=== PATIENT | female | born 1990 | race Caucasian/White ===

== ENCOUNTER 2018-01-27 20:58 | Observation (INO) | payer BC ==
--- OUTSIDE RECORDS SUMMARY | 2018-01-27 21:09 | XMS REPORT | Clinical Summary ---
:1990 Author Organization [facility] Address [address] [place] [address] Care Team Providers Name Role Phone Leon Coburn MD Primary Care Provider Allergies Active Allergy Reactions Severity Noted Date Comments Meperidine 08/17/2013 Current Medications Prescription Sig. Disp. Refills Start Date End Date Status topiramate (TOPAMAX) 25 MG TK 1 T PO HS 3 10/09/2017 Active tablet NORETHINDRONE AC-ETH Take by mouth. Active ESTRADIOL (LOESTRIN 1.5/30, 21, ORAL) lisdexamfetamine (VYVANSE) Take 70 mg by Active 70 MG capsule mouth every morning. escitalopram (LEXAPRO) 20 MG Take 20 mg by Active tablet mouth daily. meloxicam (MOBIC) 15 mg Take 15 mg by Active tablet mouth daily. amitriptyline (ELAVIL) 25 MG Take 25 mg by Active tablet mouth nightly. predniSONE (DELTASONE) 5 mg Take 5 mg by Active tablet mouth 3 (three) times a day. Active Problems Not on file Encounters Date Type Specialty Care Team Description 10/16/2017 Office Visit Ophthalmology Shaunna, Optic disc edema ( Primary Dx); MD Franchesca Unspecified visual field defects; Eye pain, bilateral; Dry eyes; Frequent headaches after 01/26/2017 Family History Medical History Relation Name Comments Hypertension Father Lupus Mother Glaucoma Paternal Grandfather Stroke Paternal Grandmother Lupus Sister Relation Name Status Comments Father Mother Paternal Grandfather Paternal Grandmother Sister Social History Tobacco Use Types Packs/Day Years Used Date Never Smoker Smokeless Tobacco: Never Used Alcohol Use Drinks/Week oz/Week Comments Yes "rarely" Sex Assigned at Date Recorded Not on file Last Filed Vital Signs Vital Sign Reading Time Taken Blood Pressure - - Pulse - - Temperature - - Respiratory Rate - - Oxygen Saturation - - Inhaled Oxygen Concentration - - Weight 56.7 kg (125 lb) 10/16/2017 7:38 AM CDT Height 157.5 cm (5' 2") 10/16/2017 7:38 AM CDT Body Mass Index 22.86 10/16/2017 7:38 AM CDT Plan of Treatment Health Maintenance Due Date Last Done Comments CERVICAL CANCER SCREENING 2009 INFLUENZA VACCINE 02/11/2018 Procedures Procedure Name Priority Date/Time Associated Diagnosis Comments OCT, OPTIC NERVE - Routine 10/16/2017 7:59 AM Unspecified visual Results for this OU - BOTH EYES CDT field defects procedure are in Optic disc edema the results section. AUTOMATED VISUAL Routine 10/16/2017 7:59 AM Unspecified visual Results for this FIELD, EXTENDED - CDT field defects procedure are in OU - BOTH EYES Optic disc edema the results section. after 01/26/2017 Results OCT, Optic Nerve - OU (10/16/2017 7:59 AM) Narrative Performed At OD 96 OS 96 Automated Visual Field, Extended - OU (10/16/2017 7:59 AM) Narrative Performed At Right Eye Threshold was 24-2. Strategy was NANCY. -4.80. Findings include normal observations, non-specific defects. Left Eye Threshold was 24-2. Strategy was NANCY. -3.98. Findings include normal observations, non-specific defects. after 01/26/2017 Insurance Payer Benefit Plan / Group Subscriber ID Type Phone Address BCBS BCBS CHOICE PPO/FEDERAL EMPL PPO xxxxxxxxxxxx PPO Home: [address] [phone] [address]
[2018-01-28] MEDS ORDERED: ENOXAPARIN 60 MG/0.6 ML SQ SCH (09:00)
[2018-01-28] MEDS ORDERED: ACETAMINOPHEN 325 MG TABLET PO PRN (09:31)
--- NOTE | 2018-01-28 10:22 | RAD REPORT ---
EXAM DESCRIPTION: VAS - Extrem Venous W Compress Ilya - 01/28/2018 10:02 am CLINICAL HISTORY: Leg pain, history of DVT COMPARISON: None. TECHNIQUE: Real-time sonographic evaluation of the bilateral lower extremity deep venous systems was performed. FINDINGS: Normal compressibility, flow augmentation, phasic flow and spontaneous flow are identified in the left and right lower extremity common femoral, superficial femoral, popliteal and posterior t ibial veins. No intraluminal filling defects seen. No suspicious finding in the soft tissues. IMPRESSION: No DVT in either lower extremity.
--- NOTE | 2018-01-28 14:40 | ECHO ---
HEIGHT: 5 ft 2 in WEIGHT: 128 lb 0 oz DATE OF STUDY: 01/28/[address]: Leon Coburn MD 2-DIMENSIONAL: YES M.MODE: YES DOPPLER: YES COLOR FLOW: YES TDS: NO PORTABLE: NO DEFINITY: NO BUBBLE STUDY: NO DIAGNOSIS: PULMONARY EMBOLISM CARDIAC HISTORY: CATHERIZATION: NO SURGERY: NO PROSTHETIC VALVE: NO PACEMAKER: NO MEASUREMENTS (cm) DIASTOLIC (NORMALS) SYSTOLIC (NORMALS) IVSd 0.8 (0.6-1.2) LA Diam 2.8 (1.9-4.0) LVEF 67% LVIDd 4.6 (3.5-5.7) LVIDs 2.9 (2.0-3.5) %FS 37% LVPWd 0.8 (0.6-1.2) Ao Diam 2.6 (2.0-3.7) 2 DIMENSIONAL ASSESSMENT: RIGHT ATRIUM: NORMAL LEFT ATRIUM: NORMAL RIGHT VENTRICLE: NORMAL LEFT VENTRICLE: NORMAL TRICUSPID VALVE: NORMAL MITRAL VALVE: NORMAL PULMONIC VALVE: NORMAL AORTIC VALVE: NORMAL PERICARDIAL EFFUSION: NONE AORTIC ROOT: NORMAL LEFT VENTRICULAR WALL MOTION: NORMAL. DOPPLER/COLOR FLOW: PHYSIOLOGIC TRICUSPID REGURGITATION. NORMAL RIGHT VENTRICULAR SYSTOLIC PRESSURE. COMMENTS: NORMAL 2D ECHO WITH DOPPLER. TECHNOLOGIST: MELANY MCKNIGHT
[2018-01-30 11:17] LABS: Protein C Antigen 91 % (70-140)
[2018-02-02 15:35] LABS: Prothrombin Gene Analysis Test REPORT
== END 2018-01-28 15:36 | disposition home or self-care (01) ==
LOC: 4TH 21:08 → INTOOBSV 21:08
PROVIDERS: ADMIT Internal Medicine; ATTEND Internal Medicine
DX: I26.99 Other pulmonary embolism without acute cor pulmonale (principal); M32.9 Systemic lupus erythematosus, unspecified; I07.1 Rheumatic tricuspid insufficiency; G43.909 Migraine, unspecified, not intractable, without status migrainosus; Z88.5 Allergy status to narcotic agent
CPT/HCPCS: 81240; 81241; 83090; 85300; 85302; 85305; 85306; 86147; 93306; 93970; G0378; J1650

== ENCOUNTER 2018-03-05 11:57 | Observation (INO) | payer BC ==
--- OUTSIDE RECORDS SUMMARY | 2018-03-05 12:12 | XMS REPORT | Continuity of Care Document ---
:1990 Author Organization Interface Problems Problem Status Onset Classification Date Comments Source Date Reported AMENORRHEA, Active Condition 03/28/2014 Medical SECONDARY, 4 Group R/O MRSA Active Condition 03/28/2014 Medical 4 Group Medications Medication Details Route Status Patient Ordering Order Source Instructions Provider Date LEXAPRO 20 MG 2 tabs po Active 03/28/20 Medical TABS qd 14 Group ADDERALL XR 30 1 Ttab po Active 03/28/20 Medical MG [id number] qam 14 Group ABILIFY 5 MG 1 tab po Active 03/28/20 Medical TABS qd 14 Group Allergies, Adverse Reactions, Alerts Substance Category Reaction Severity Reaction Status Date Comments Source type Reported DEMEROL Drug DEMEROL allergy 4 Medical Group Immunizations Immunization Date Given Site Status Last Updated Comments Source Results Order Results Value Reference Date Interpretation Comments Source Name Range Rhia PAP SMEAR Normal Medical 014 Group Vital Signs Vital Sign Value Date Comments Source Weight 128 03/28/2014 Medical Group Height 63 03/28/2014 Medical Group Systolic (mm Hg) 98 03/28/2014 Medical Group Heart Rate 103 03/28/2014 Medical Group Diastolic (mm Hg) 63 03/28/2014 Medical Group Temperature Oral (F) 99.0 F 03/28/2014 Medical Group Encounters Location Location Encounter Encounter Reason Attending ADM DC Status Source Details Type Number For Provider Date Date Visit [facility] Lab Report [id number] Cm 03/28 03/28 Jah Douglass, /2013 [facility] Medical MERCURY PURIFIER Group Group CCC [facility] Procedures Procedure Code Date Perfomer Comments Source vaginal Pap smear [id number] 01/11/2014 Normal Medical results Group
--- OUTSIDE RECORDS SUMMARY | 2018-03-05 12:12 | XMS REPORT | Continuity of Care Document ---
:1990 Author Organization [facility] Care Team Providers Name Role Phone CIERRA Douglass, Cm Unavailable Unavailable Insurance Providers Payer name Policy type / Policy ID Covered republican ID Policy Candelaria Coverage type [employer] - AETNA SIGNAT AETNA [employer] - AETNA SIGNAT AETNA AETNA AETNA AETNA Encounters Encounter Performer Location Date Lab Report Cm Douglass APRN [facility] Mar 28, 2014 Allergies, Adverse Reactions, Alerts Type Substance Reaction Status Drug allergy DEMEROL crazy-per patient Active Problems Problem Effective Dates Problem Status AMENORRHEA, SECONDARY, R/O Mar 28, 2014 Active MRSA Mar 28, 2014 Active Procedures Date Description Comments Mar 28, 2014 smoking status Former smoker Jan 11, 2014 vaginal Pap smear results Normal Medications Medication Instructions Start Date Status LEXAPRO 20 MG TABS 2 tabs po qd Mar 28, 2014 Active ADDERALL XR 30 MG [id number] 1 Ttab po qam Mar 28, 2014 Active ABILIFY 5 MG TABS 1 tab po qd Mar 28, 2014 Active Vital Signs Date Description Test Result Mar 28, 2014 weight E&M - 3141-9 WEIGHT 128 lb Mar 28, 2014 height E&M - 8302-2 HEIGHT 63 in Mar 28, 2014 blood pressure, systolic - 8480-6 BP SYSTOLIC 98 mm Hg Mar 28, 2014 pulse rate E&M - 8867-4 PULSE RATE 103 /min Mar 28, 2014 blood pressure, diastolic - 8462-4 BP DIASTOLIC 63 mm Hg Mar 28, 2014 temperature E&M TEMPERATURE 99.0 deg f Results Date Description Test Name Value Reference Interpretation Status Jan 11, 2014 vaginal Pap smear PAP SMEAR Normal null results
--- OUTSIDE RECORDS SUMMARY | 2018-03-05 12:12 | XMS REPORT | Clinical Summary ---
:1990 Author Organization [facility] Address [address] [place] [address] Care Team Providers Name Role Phone Leon Coburn MD Primary Care Provider Allergies Active Allergy Reactions Severity Noted Date Comments Meperidine 08/17/2013 Current Medications Prescription Sig. Disp. Refills Start Date End Date Status topiramate (TOPAMAX) 25 TK 1 T PO HS 3 10/09/2017 Active MG tablet NORETHINDRONE AC-ETH Take by mouth. Active ESTRADIOL (LOESTRIN 1.5/30, 21, ORAL) lisdexamfetamine Take 70 mg by Active (VYVANSE) 70 MG capsule mouth every morning. escitalopram (LEXAPRO) Take 20 mg by Active 20 MG tablet mouth daily. meloxicam (MOBIC) 15 mg Take 15 mg by Active tablet mouth daily. amitriptyline (ELAVIL) Take 25 mg by Active 25 MG tablet mouth nightly. predniSONE (DELTASONE) Take 5 mg by Active 5 mg tablet mouth 3 (three) times a day. lidocaine (LIDODERM) 5 Place 1 patch 10 patch 0 01/29/2018 02/28/2018 % on the skin daily for 30 days. Remove & Discard patch within 12 hours or as directed by MD Active Problems Not on file Encounters Date Type Specialty Care Team Description 01/29/2018 Emergency Emergency Medicine Andrew Sewell MD PE (pulmonary thromboembolism) (Primary Dx); Rib pain on left side 01/29/2018 Telephone Cardiovascular Emma Garg RN 10/16/2017 Office Visit Ophthalmology Shaunna, Optic disc edema ( Primary Dx); MD Franchesca Unspecified visual field defects; Eye pain, bilateral; Dry eyes; Frequent headaches after 03/04/2017 Family History Medical History Relation Name Comments [...] Vital Sign Reading Time Taken Blood Pressure 98/62 01/29/2018 8:43 PM CDT Pulse 86 01/29/2018 8:43 PM CDT Temperature 36.6 C (97.8 F) 01/29/2018 7:29 PM CDT Respiratory Rate 16 01/29/2018 8:43 PM CDT Oxygen Saturation 100% 01/29/2018 8:43 PM CDT Inhaled Oxygen Concentration - - Weight 56.7 kg (125 lb) 10/16/2017 7:38 AM CDT Height 157.5 cm (5' 2") 01/29/2018 7:29 PM CDT Body Mass Index 22.86 10/16/2017 7:38 AM CDT Plan of Treatment Health Maintenance Due Date Last Done Comments CERVICAL CANCER SCREENING 2009 INFLUENZA VACCINE 02/11/2018 04/10/2016 Procedures Procedure Name Priority Date/Time Associated Comments Diagnosis ESTIMATED GFR STAT 01/29/2018 7:35 Results for this PM CDT procedure are in the results section. B NATRIURETIC PEPTIDE STAT 01/29/2018 7:35 Results for this PM CDT procedure are in the results section. TROPONIN STAT 01/29/2018 7:35 Results for this PM CDT procedure are in the results section. COMPREHENSIVE STAT 01/29/2018 7:35 Results for this METABOLIC PANEL PM CDT procedure are in the results section. HC COMPLETE BLD COUNT STAT 01/29/2018 7:35 Results for this W/AUTO DIFF PM CDT procedure are in the results section. ECG 12-LEAD STAT 01/29/2018 7:34 Results for this PM CDT procedure are in the results section. OCT, OPTIC NERVE - OU Routine 10/16/2017 7:59 Unspecified visual Results for this - BOTH EYES AM CDT field defects procedure are in Optic disc edema the results section. AUTOMATED VISUAL Routine 10/16/2017 7:59 Unspecified visual Results for this FIELD, EXTENDED - OU - AM CDT field defects procedure are in BOTH EYES Optic disc edema the results section. after 03/04/2017 Results Estimated GFR (01/29/2018 7:35 PM) GFR Non Af Amer 85 mL/min/1.73 m2 [facility] DEPARTMENT OF PATHOLOGY AND GENOMIC MEDICINE GFR Af Amer >90 mL/min/1.73 m2 [facility] DEPARTMENT OF Comment: PATHOLOGY AND GENOMIC Chronic kidney disease: <60 mL/min/1.73m2 MEDICINE Kidney failure: <15 mL/min/1.73m2 The estimated GFR is calculated from the IDMS-traceable Modification of Diet in Renal Disease Equation. The accuracy of the calculation is poor when the creatinine is normal. Calculated values >90 mL/min/1.73m2 are not reported. This equation has not been validated in children (<18 years), women, the elderly (>70 years), or ethnic groups other than Caucasians and Americans. Specimen Plasma specimen Performing Organization Address City/State/[facility] Cent[facility]ode Phone Number [facility] DEPARTMENT OF PATHOLOGY AND [address] [place] [address] Troponin (01/29/2018 7:35 PM) Troponin <0.30 0.00 - 0.30 ng/mL [facility] DEPARTMENT OF PATHOLOGY Comment: AND GENOMIC MEDICINE 0.30 - 1.49 ng/mlMay indicate increased risk of acute coronary syndrome. >=1.5 ng/mlConsistent with acute myocardial infarction. The diagnostic value of a single normal or non-diagnostic result is questionable.Serial samples at 2-6 hour intervals are required to rule out acute myocardial injury. Specimen Plasma specimen Performing Organization Address City/State/[facility] Centercode Phone Number [facility] DEPARTMENT OF PATHOLOGY AND [address] [place], [place] [phone] [facility] CBC with platelet and differential (01/29/2018 7:35 PM) WBC 5.77 4.50 - 11.00 k/uL [facility] DEPARTMENT OF PATHOLOGY AND GENOMIC MEDICINE RBC 4.10 (L) 4.20 - 5.50 m/uL [facility] DEPARTMENT OF PATHOLOGY AND GENOMIC MEDICINE HGB 12.6 12.0 - 16.0 g/dL [facility] DEPARTMENT OF PATHOLOGY AND GENOMIC MEDICINE HCT 38.9 37.0 - 47.0 % [facility] DEPARTMENT OF PATHOLOGY AND GENOMIC MEDICINE MCV 94.9 82.0 - 100.0 fL [facility] DEPARTMENT OF PATHOLOGY AND GENOMIC MEDICINE MCH 30.7 27.0 - 34.0 pg [facility] DEPARTMENT OF PATHOLOGY AND GENOMIC MEDICINE MCHC 32.4 31.0 - 37.0 g/dL [facility] DEPARTMENT OF PATHOLOGY AND GENOMIC MEDICINE RDW - SD 41.5 37.0 - 55.0 fL [facility] DEPARTMENT OF PATHOLOGY AND GENOMIC MEDICINE MPV 10.1 8.8 - 13.2 fL [facility] DEPARTMENT OF PATHOLOGY AND GENOMIC MEDICINE Platelet count 296 150 - 400 k/uL [facility] DEPARTMENT OF PATHOLOGY AND GENOMIC MEDICINE Nucleated RBC 0.00 /100 WBC [facility] DEPARTMENT OF PATHOLOGY AND GENOMIC MEDICINE Neutrophils 44.0 39.0 - 69.0 % [facility] DEPARTMENT OF PATHOLOGY AND GENOMIC MEDICINE Lymphocytes 41.8 25.0 - 45.0 % [facility] DEPARTMENT OF PATHOLOGY AND GENOMIC MEDICINE Monocytes 8.0 0.0 - 10.0 % [facility] DEPARTMENT OF PATHOLOGY AND GENOMIC MEDICINE Eosinophils 4.5 0.0 - 5.0 % [facility] DEPARTMENT OF PATHOLOGY AND GENOMIC MEDICINE Basophils 1.4 (H) 0.0 - 1.0 % [facility] DEPARTMENT OF PATHOLOGY AND GENOMIC MEDICINE Immature granulocytes 0.3Comment: 0.0 - 1.0 % [facility] DEPARTMENT OF "Immature PATHOLOGY AND GENOMIC granulocytes" MEDICINE (promyelocytes, myelocytes, metamyelocytes) Specimen Blood Performing Organization Address City/[facility]/Zipcode Phone Number [facility] DEPARTMENT OF PATHOLOGY AND [address] [place] [address] B natriuretic peptide (01/29/2018 7:35 PM) BNP 7 0 - 100 pg/mL [facility] DEPARTMENT OF PATHOLOGY AND GENOMIC MEDICINE Specimen Blood Performing Organization Address City/[facility]/Zipcode Phone Number [facility] DEPARTMENT OF PATHOLOGY AND [address] [place], [place] [phone] [facility] Comprehensive metabolic panel (01/29/2018 7:35 PM) Sodium 139 135 - 148 mEq/L [facility] DEPARTMENT OF PATHOLOGY AND GENOMIC MEDICINE Potassium 4.6 3.5 - 5.0 mEq/L [facility] DEPARTMENT OF PATHOLOGY AND GENOMIC MEDICINE Chloride 101 98 - 112 mEq/L [facility] DEPARTMENT OF PATHOLOGY AND GENOMIC MEDICINE CO2 29 24 - 31 mEq/L [facility] DEPARTMENT OF PATHOLOGY AND GENOMIC MEDICINE Anion gap 9@ANIO 7 - 15 mEq/L [facility] DEPARTMENT OF PATHOLOGY AND GENOMIC MEDICINE BUN 15 6 - 20 mg/dL [facility] DEPARTMENT OF PATHOLOGY AND GENOMIC MEDICINE Creatinine 0.8 0.5 - 0.9 mg/dL [facility] DEPARTMENT OF PATHOLOGY AND GENOMIC MEDICINE Glucose 83 65 - 99 mg/dL [facility] DEPARTMENT OF PATHOLOGY AND GENOMIC MEDICINE Calcium 9.2 8.3 - 10.2 mg/dL [facility] DEPARTMENT OF PATHOLOGY AND GENOMIC MEDICINE Protein 6.9 6.3 - 8.3 g/dL [facility] DEPARTMENT OF Comment: PATHOLOGY AND GENOMIC 4.6-7.0 g/dL MEDICINE 1 week 4.4-7.6 g/dL 7 months-1year5.1-7.3 g/dL 1-2 years5.6-7.5 g/dL >3 years6.0-8.0 g/dL 18-150 6.3-8.3 g/dL Albumin 3.6 3.5 - 5.0 g/dL [facility] DEPARTMENT OF PATHOLOGY AND GENOMIC MEDICINE A/G ratio 1.1 0.7 - 3.8 [facility] DEPARTMENT OF PATHOLOGY AND GENOMIC MEDICINE Alkaline phosphatase 56 35 - 104 U/L [facility] DEPARTMENT OF PATHOLOGY AND GENOMIC MEDICINE AST 26 10 - 35 U/L [facility] DEPARTMENT OF PATHOLOGY AND GENOMIC MEDICINE ALT 24 5 - 50 U/L [facility] DEPARTMENT OF PATHOLOGY AND GENOMIC MEDICINE Total bilirubin <0.2 0.0 - 1.2 mg/dL [facility] DEPARTMENT OF PATHOLOGY AND GENOMIC MEDICINE Specimen Plasma specimen Performing Organization Address City/[facility] Centercode Phone Number [facility] DEPARTMENT OF PATHOLOGY AND [address] [place] [address] [facility] ECG 12 lead (01/29/2018 7:34 PM) Ventricular rate 82 HM MUSE Atrial rate 82 HM MUSE AR interval 104 [facility] MUSE QRSD interval 84 HM MUSE QT interval 388 [facility] MUSE QTC interval 453 [facility] MUSE P axis 1 61 [facility] MUSE QRS axis 1 51 [facility] MUSE T wave axis 44 [facility] MUSE EKG impression Sinus rhythm with short AR-Otherwise normal [facility] MUSE ECG-No previous ECGs available- Performing Organization Address City/[facility] Centercoin Phone Number [facility] [address] [place] [address] OCT, Optic Nerve - OU (10/16/2017 7:59 AM) Narrative Performed At OD 96 OS 96 Automated Visual Field, Extended - OU (10/16/2017 7:59 AM) Narrative Performed At Right Eye Threshold was 24-2. Strategy was NANCY. -4.80. Findings include normal observations, non-specific defects. Left Eye Threshold was 24-2. Strategy was NANCY. -3.98. Findings include normal observations, non-specific defects. after 03/04/2017 Insurance Payer Benefit Plan / Group Subscriber ID Type Phone Address BS BS CHOICE PPO/FEDERAL EMPL PPO xxxxxxxxxxxx PPO Home: [address] [phone] [address]
[2018-03-05] MEDS ORDERED: LOPERAMIDE HCL 2 MG CAPSULE PO PRN (13:00)
[2018-03-05] MEDS ORDERED: DIPHENHYDRAMINE 25 MG TAB/CAP PO PRN (13:00)
[2018-03-05] MEDS ORDERED: NACHLORIDE 0.45% 1,000 ML IV SCH (13:00)
[2018-03-05] MEDS ORDERED: ACETAMINOPHEN 325 MG TABLET PO PRN (13:00)
[2018-03-05] MEDS ORDERED: ONDANSETRON 4 MG (ODT) TAB PO PRN (13:00)
[2018-03-05] MEDS ORDERED: POLYETHYL GLY 3350 17 GM/DOSE PO PRN (13:00)
[2018-03-05] MEDS ORDERED: ONDANSETRON 4 MG/2 ML VIAL IV PRN (13:00)
[2018-03-05 13:21] LABS: Absolute Lymphocytes (CBC) 1.5 K/uL (0.7-4.9); Absolute Monocytes 0.3 K/uL (0.1-1.3); Absolute Neutrophil 2.4 K/uL (1.8-8.0); Basophils % 1.4 % (0-1.3); Eosinophils % 1.4 % (0-4.4); Lymphocytes % 34.3 % (15.3-44.8); MCH 30.8 pg (27.0-35.0); MCV 91.1 fL (80-100); Monocytes % 6.9 % (3.3-12.3); RBC Red Blood Cell Count 4.17 M/uL (3.86-4.86)
[2018-03-05 13:24] LABS: Protime INR 1.22
--- NOTE | 2018-03-05 13:51 | RAD REPORT ---
EXAM DESCRIPTION: RAD - Chest Pa And Lat (2 Views) - 03/05/2018 1:24 pm CLINICAL HISTORY: Back pain, abdominal pain, lupus COMPARISON: October 2017 TECHNIQUE: PA and lateral views of the chest were obtained. FINDINGS: The lungs are clear. No mediastinal or hilar mass or lymphadenopathy suspected. Trachea i s midline. Heart size is normal and central vasculature is within normal limits. No pleural effusion or pneumothorax seen. No acute bony finding noted. No aortic abnormality. IMPRESSION: No acute cardiopulmonary process. No significant change from comparison.
[2018-03-05 14:01] LABS: ALT/SGPT 28 U/L (12-78); AST/SGOT 23 U/L (15-37); Albumin 4.1 g/dL (3.4-5.0); Alkaline Phosphatase 59 U/L (45-117); BUN Blood Urea Nitrogen 8 mg/dL (7-18); Bicarbonate 28 mmol/L (21-32); Bilirubin Direct < 0.1 mg/dL (0-0.2); Bilirubin Total 0.2 mg/dL (0.2-1.0); C-Reactive Protein < 2.90 mg/L (<3.00); Glucose Level 84 mg/dL (74-106); Phosphorus 3.3 mg/dL (2.5-4.9); Potassium 4.3 mmol/L (3.5-5.1); Protein, Total 7.5 g/dL (6.4-8.2); Sodium Level 140 mmol/L (136-145)
[2018-03-05] MEDS: METHYLPREDNISOLONE 40 MG INJ IV SCH ×2 (14:22→18:22)
[2018-03-05] MEDS ORDERED: PNEUMOCOCCAL VACCINE 0.5 ML IMVAC ONE (15:00)
[2018-03-05 15:20] LABS: Urine Appearance CLEAR; Urine Bilirubin NEGATIVE (NEG); Urine Blood NEGATIVE (NEG); Urine Color YELLOW; Urine Glucose NEGATIVE (NEG); Urine Microscopic Reflex NO UMIC; Urine Protein NEGATIVE (NEG); Urine Specific Gravity 1.015 (1.005-1.030); Urine Urobilinogen 0.2 mg/dL (0.2-1.0); Urine pH 7.5 (5.0-7.0)
--- NOTE | 2018-03-05 16:27 | EKG ---
Test Date: 2018-03-05 Test Time: 13:06:49 [employer]ary V[employer]er Machine Operator: JDUY MEASUREMENT RESULTS: Intervals: Rate: 87 MI: 136 QRSD: 86 QT: 374 QTc: 450 [place]: P: 78 MI: 136 QRS: 47 T: 49 INTERPRETIVE STATEMENTS: Normal sinus rhythm Normal ECG No previous ECG available for comparison Electronically Signed On 03-05-18 16:27:05 CDT by Sd Glaser
--- NOTE | 2018-03-05 16:57 | RAD REPORT ---
EXAM DESCRIPTION: US - Abdomen Exam Complete - 03/05/2018 4:43 pm CLINICAL HISTORY: Abdominal pain. abd pain active lupus backpain COMPARISON: No comparisonsNo comparisons FINDINGS: The liver is normal in size, shape and echotexture. No focal liver lesions or intrahepatic biliary dilatation is seen. The gallbladder demonstrates no gallstones, pericholecystic fluid or gallbladder wall thickening. Co mmon bile duct is normal in caliber measuring 3 mm. Both kidneys are normal in size, shape and echotexture. No hydronephrosis, focal lesion of concern or perinephric fluid. The spleen is normal in size measuring 10 cm. The pancreas and aorta are obscured by bowel gas. The visualized aspects of the IVC are grossly normal. IMPRESSION: Unremarkable study except for limited assessment of the pancreas and aorta due to bowel gas.
[2018-03-05] MEDS ORDERED: RIVAROXABAN 20 MG TABLET PO SCH (17:00)
--- NOTE | 2018-03-05 17:57 | RAD REPORT ---
EXAM DESCRIPTION: MRI - Spine Lumbar W/Wo Cont - 03/05/2018 4:12 pm CLINICAL HISTORY: Worsening back pain COMPARISON: None. TECHNIQUE: Sagittal T1-weighted, T2-weighted and T2-STIR weighted sequences were obtained. Axial T1- weighted and heavily T2-weighted sequences were obtained through the lumbar disc levels. Sagittal and axial post-contrast. T1-weighted images were obtained following 40ml on Gd contrast material. FINDINGS: Lumbar bodies are normal in height and alignment. No suspicious marrow signal. No paraspin al masses. Conus is normal with no clumping or thickening of the cauda equina. T12-L1 level: No significant findings. L1-2 level: No significant findings. L2-3 level: No significant findings. L3-4 level: No significant findings. L4-5 level: No significant findings. L5-S1 level: No significant findings. Postcontrast images show enhancement of the soft tissues surrounding the L5-S1 facet joints. Enhancem ent within the remaining lumbar facet joints not outside of normal range. No disc or vertebral body e nhancement. No abnormal enhancement in the central canal. IMPRESSION: Enhancement surrounding the bilateral L5-S1 facet joints. Finding can reflect a chronic low-level inflammatory process or early facet arthritis. The remainder of the lumbar spine examination is unremarkable.
--- NOTE | 2018-03-05 18:03 | RAD REPORT ---
EXAM DESCRIPTION: MRI - MRA Abdomen W/Wo Cont - 03/05/2018 4:12 pm CLINICAL HISTORY: Abdominal pain, lupus, mesenteric ischemia COMPARISON: None. TECHNIQUE: Axial T2 haste sequencing performed. MR angiography of the abdominal vasculature performe d. Coronal plane acquisition performed. A 40 milliliter MultiHance contrast volume was utilized. Imag ing was performed using maximum intensity projection protocol. FINDINGS: Aorta is normal in diameter. No dissection or focal aortic process. Iliac arteries normal as well. Single renal artery supply each kidney with no focal abnormality seen. Origins of the celiac and superior mesenteric arteries also unremarkable. Far peripheral branches are not well visualized due to motion. Bowel ischemic issues are usually associated with proximal disease. No fibromuscular d ysplasia or other vascular abnormality identifiable. IMPRESSION: Negative MR angiography of the abdominal vasculature.
[2018-03-05] MEDS ORDERED: SODIUM CHLORIDE 0.9% 10ML INJ IV PRN (18:18)
[2018-03-05] MEDS: TRAMADOL HCL 50 MG TAB PO PRN (18:53)
[2018-03-05] MEDS: PANTOPRAZOLE 40 MG INJ IVP SCH (18:55)
[2018-03-05] MEDS ORDERED: FLUDROCORTISONE 0.1 MG TAB PO PRN (21:48)
[2018-03-06] MEDS: METHYLPREDNISOLONE 40 MG INJ IV SCH ×3 (00:31→12:36)
[2018-03-06 05:48] LABS: Absolute Lymphocytes (CBC) 0.6 K/uL (0.7-4.9); Absolute Monocytes 0.1 K/uL (0.1-1.3); Basophils % 0.1 % (0-1.3); Hematocrit 36.7 % (36.0-45.0); Lymphocytes % 9.5 % (15.3-44.8); MCH 31.4 pg (27.0-35.0); MCV 91.1 fL (80-100); MPV 7.9 fL (7.6-11.3); Monocytes % 1.1 % (3.3-12.3); RBC Red Blood Cell Count 4.03 M/uL (3.86-4.86)
[2018-03-06 06:02] LABS: BUN Blood Urea Nitrogen 10 mg/dL (7-18); Bicarbonate 26 mmol/L (21-32); Glucose Level 118 mg/dL (74-106); Magnesium 1.9 mg/dL (1.8-2.4); Potassium 3.9 mmol/L (3.5-5.1); Sodium Level 138 mmol/L (136-145)
[2018-03-06] MEDS: TRAMADOL HCL 50 MG TAB PO PRN (06:07)
[2018-03-06 06:41] LABS: Blood Morphology Comment NOT SEEN (NOT SEEN); Platelet Estimate ADEQ; Urine White Blood Cell Casts OK
[2018-03-06] MEDS: MAGNESIUM SULFATE 1 gm IVPB 1 GM/100 ML BAG IV ONE ×2 (09:00→10:46)
[2018-03-06] MEDS ORDERED: POTASSIUM CL SA 10 MEQ TAB PO ONE (09:00)
[2018-03-06] MEDS ORDERED: LISDEXAMFETAMINE DIMESYLATE PO SCH (09:00)
[2018-03-06] MEDS ORDERED: HYDROXYCHLOROQUINE 200MG TAB PO SCH (09:00)
[2018-03-06] MEDS ORDERED: ESCITALOPRAM 20 MG TAB PO SCH (09:00)
[2018-03-06] MEDS ORDERED: RIVAROXABAN 10 MG TABLET PO SCH (09:00)
[2018-03-06] MEDS ORDERED: ENOXAPARIN 40 MG/0.4 ML SQ SCH (09:00)
[2018-03-06] MEDS ORDERED: TOPIRAMATE 25 MG TAB PO SCH ×2 (09:00→21:00)
[2018-03-06] MEDS: PANTOPRAZOLE 40 MG INJ IVP SCH (09:58)
--- NOTE | 2018-03-06 10:24 | RAD REPORT ---
EXAM DESCRIPTION: CTAbdomen Pelvis W Contrast - 03/06/2018 10:12 am CLINICAL HISTORY: Abdominal pain. abdomen pain COMPARISON: No comparisons TECHNIQUE: Biphasic CT imaging of the abdomen and pelvis was performed with 100 ml non-ionic IV cont rast. All CT scans are performed using dose optimization technique as appropriate and may include automated exposure control or mA/KV adjustment according to patient size. FINDINGS: The lung bases are clear. Mild diffuse fatty liver is present. 6 mm low-density lesion in the right lobe posteriorly most likel y a cyst. No intrahepatic biliary dilatation is seen. The spleen, pancreas, adrenal glands right kidn ey are normal. The left kidney contains a 5 mm stone in the midpole and a punctate stone in the super ior pole without hydronephrosis. 9 mm cyst is present inferior pole left kidney. No bowel obstruction, free air, free fluid or abscess. The appendix is normal. No evidence of signi ficant lymphadenopathy. No suspicious bony findings. IMPRESSION: Left renal calculi without hydronephrosis.
--- NOTE | 2018-03-06 12:41 | P.DS ---
Admission Date: 03/05/18 Discharge Date: 03/06/18 Disposition: ROUTINE DISCHARGE Discharge Condition: [facility] Hospital Course: KAL HAS HAD SEVERE LOWER BACK PAIN WITH RADIATION TO FRONT. MRI SHOWED L5-S1 INFLAMMATION. SHE HAS ANTI HISTONE POSITIVE. HER CT ABD SHOWED RENAL STONES , OLD. MRA NEGATIVE . SHE IS STABLE FOR DC . I CALLED DR. FIERRO TO GET HER IN FOR APT HER OTHER RHEUMATOLOGISTS ARE NOT ABLE TO CONTROL HER SYMPTOMS. HE AGREED. DC PAIN MEDS TRAMADOL. Vital Signs/Physical Exam: Temp Pulse Resp BP Pulse Ox 97.3 F 92 H 18 101/61 100 03/06/18 12:00 03/06/18 12:00 03/06/18 12:00 03/06/18 12:00 03/06/18 12:00 Laboratory Data at Discharge: WBC 6.7 K/uL (4.3-10.9) D 03/06/18 05:19 Hgb 12.7 g/dL (12.0-15.0) 03/06/18 05:19 Hct 36.7 % (36.0-45.0) 03/06/18 05:19 Plt Count 348 K/uL (152-406) 03/06/18 05:19 PT 14.4 SECONDS (9.5-12.5) H 03/05/18 13:05 INR 1.22 03/05/18 13:05 APTT 39.4 SECONDS (24.3-36.9) H 03/05/18 13:05 Sodium 138 mmol/L (136-145) 03/06/18 05:19 Potassium 3.9 mmol/L (3.5-5.1) 03/06/18 05:19 BUN 10 mg/dL (7-18) 03/06/18 05:19 Creatinine 0.60 mg/dL (0.55-1.3) 03/06/18 05:19 Glucose 118 mg/dL (74-106) H 03/06/18 05:19 Phosphorus 3.3 mg/dL (2.5-4.9) 03/05/18 13:05 Magnesium 1.9 mg/dL (1.8-2.4) 03/06/18 05:19 Total Bilirubin 0.2 mg/dL (0.2-1.0) 03/05/18 13:05 AST 23 U/L (15-37) 03/05/18 13:05 ALT 28 U/L (12-78) 03/05/18 13:05 Alkaline Phosphatase 59 U/L (45-117) 03/05/18 13:05 Home Medications: Lisdexamfetamine Dimesylate [Vyvanse] 1 cap PO DAILY 01/27/18 Topiramate [Topamax] 1 tab PO DAILY 01/27/18 Fludrocortisone Acetate 0.1 mg PO PRN PRN 01/28/18 Escitalopram [Lexapro*] 30 mg PO DAILY 03/05/18 Hydroxychloroquine [Plaquenil*] 200 mg PO DAILY 03/05/18 Rivaroxaban [Xarelto*] 20 mg PO DAILY 03/05/18 Patient Discharge Instructions: I TALKED TO DR FIERRO. HIS OFFICE WILL CONTACT YOU. I NEED YOU TO BRING YOUR CT SCAN THAT SHOWED BLOOD CLOT IN LUNG. I HAVE FAXED ALL PAPERS TO DR. FIERRO.
[2018-03-07 12:44] LABS: Complement (CH50), Total 43 U/mL (31-60)
== END 2018-03-06 13:20 | disposition home or self-care (01) ==
LOC: 4TH 12:09
PROVIDERS: ADMIT Internal Medicine; ATTEND Internal Medicine
DX: M54.5 Low back pain (principal); R51 Headache; M32.9 Systemic lupus erythematosus, unspecified
CPT/HCPCS: 36415; 71046; 72158; 74177; 76700; 80048; 80076; 81003; 82306; 82607; 83735; 84100; 84443; 85025; 85610; 85652; 85730; 86140; 86160; 86162; 87086; 87088; 93005; A9577; C8902; C9113; G0378; J2920; J3475; Q9967

== ENCOUNTER 2018-05-01 11:44 | Observation (INO) | payer BC ==
--- OUTSIDE RECORDS SUMMARY | 2018-05-01 12:05 | XMS REPORT | Continuity of Care Document ---
:1990 Author Organization [facility] Care Team Providers Name Role Phone CIERRA Douglass, Cm Unavailable Unavailable Insurance Providers Payer name Policy type / Policy ID Covered alliance party ID Policy Candelaria Coverage type [employer] - AETNA SIGNAT AETNA [employer] - AETNA SIGNAT AETNA AETNA AETNA AETNA Encounters Encounter Performer Location Date Lab Report Cm Douglass APRN [facility] Mar 28, 2014 Allergies, Adverse Reactions, Alerts [...] 28, 2014 Active ADDERALL XR 30 MG [id number] 1 Ttab po qam Mar 28, 2014 [...]
--- OUTSIDE RECORDS SUMMARY | 2018-05-01 12:05 | XMS REPORT | Continuity of Care Document ---
[...] 1 Ttab po Active 03/28/20 Medical MG [id number] qam 14 Group ABILIFY 5 MG 1 tab po Active 03/28/20 Medical TABS qd 14 Group Allergies, Adverse Reactions, Alerts Substance Category Reaction Severity Reaction Status Date Comments Source type Reported DEMEROL Drug DEMEROL allergy 4 Medical Group Immunizations Immunization Date Given Site Status Last Updated Comments Source Results Order Results Value Reference Date Interpretation Comments Source Name Range Grommet Worker PAP SMEAR Normal Medical 014 Group Vital [...] Type Number For Provider Date Date Visit [facility] Lab Report [id number] Cm 03/28 03/28 Jah Douglass, /2013 Medical Medical CAR [facility] Procedures Procedure Code Date Perfomer Comments Source vaginal Pap smear [id number] 01/11/2014 Normal Medical results Group
--- OUTSIDE RECORDS SUMMARY | 2018-05-01 12:05 | XMS REPORT | Clinical Summary ---
:1990 Author Organization [facility] Address [address] [place] [id number] Care Team Providers Name Role Phone Leon Coburn MD Primary Care Provider Allergies Active Allergy Reactions Severity Noted Date Comments Meperidine 08/17/2013 Current Medications Prescription Sig. Disp. Refills Start End Date Status Date topiramate (TOPAMAX) 25 TK 1 T PO HS 3 Active MG tablet 8 lisdexamfetamine Take 70 mg by Active (VYVANSE) 70 MG capsule mouth every morning. escitalopram (LEXAPRO) Take 20 mg by Active 20 MG tablet mouth daily. hydroxychloroquine 1 pill a day Active (PLAQUENIL) 200 mg 8 tablet rivaroxaban (XARELTO) Active 20 mg tablet 8 RESTASIS MULTIDOSE 0.05 Active % drops 8 traMADol (ULTRAM) 50 mg Active tablet 8 SUMAtriptan (IMITREX) TK 1 T PO AOS 5 Active 25 MG tablet OF MCCORMACK. NOVEMBER 18 REPEAT ONE IN 2 H IF NO MCCORMACK RELIEF. MAX OF 4 TABLETS IN 24 H fludrocortisone TK 1 T PO D FOR 1 Active (FLORINEF) 0.1 mg ORTHOSTASIS 8 tablet b complex vitamins Take 1 capsule Active capsule by mouth daily. L. rhamnosus GG/inulin Take by mouth. Active (CULTURELLE PROBIOTICS ORAL) UNABLE TO FIND Zquil for sleep Active NORETHINDRONE AC-ETH Take by mouth. 03/10/20 Discontinued ESTRADIOL (LOESTRIN 18 1.5/30, 21, ORAL) meloxicam (MOBIC) 15 mg Take 15 mg by 08/28/20 Discontinued tablet mouth daily. 18 amitriptyline (ELAVIL) Take 25 mg by 03/10/20 Discontinued 25 MG tablet mouth nightly. 18 predniSONE (DELTASONE) Take 5 mg by 03/10/20 Discontinued 5 mg tablet mouth 3 (three) 18 times a day. lidocaine (LIDODERM) 5 Place 1 patch 10 patch 0 02/29/20 % on the skin 8 18 daily for 30 days. Remove & Discard patch within 12 hours or as directed by MD Active Problems Not on file Encounters Date Type Specialty Care Team Description 03/10/2018 Office Visit Rheumatology Yunier Luo Positive VINCE ( antinuclear antibody) (Primary Dx); MD Sophia Other acute pulmonary embolism without acute cor pulmonale; Dry mouth; Cervical lymphadenopathy 01/29/2018 Emergency Emergency Medicine Andrew Sewell MD PE (pulmonary thromboembolism) (Primary Dx); Rib pain on left side 01/29/2018 Telephone Cardiovascular Emma Garg RN 10/16/2017 Office Visit Ophthalmology Shaunna, Optic disc edema ( Primary Dx); MD Franchesca Unspecified visual field defects; Eye pain, bilateral; Dry eyes; Frequent headaches after 04/30/2017 Family History Medical History Relation Name Comments No Known Problems Brother Hypertension Father Other Mother positive VINCE Glaucoma Paternal Grandfather Stroke Paternal Grandmother Lupus Sister Scleroderma Sister No Known Problems Sister No Known Problems Sister Relation Name Status Comments Brother Alive Father Alive Mother Alive Paternal Grandfather Paternal Grandmother Sister Alive Sister Alive Sister Alive Social History Tobacco Use Types Packs/Day Years Used Date Never Smoker Smokeless Tobacco: Never Used Alcohol Use Drinks/Week oz/Week Comments Yes "rarely" Sex Assigned at Date Recorded Not on file Last Filed Vital Signs Vital Sign Reading Time Taken Blood Pressure 128/86 03/10/2018 8:40 AM CDT Pulse 116 03/10/2018 8:40 AM CDT Temperature 36.8 C (98.2 F) 03/10/2018 8:40 AM CDT Respiratory Rate 18 03/10/2018 8:40 AM CDT Oxygen Saturation 100% 03/10/2018 8:40 AM CDT Inhaled Oxygen Concentration - - Weight 58.3 kg (128 lb 9.6 oz) 03/10/2018 8:40 AM CDT Height 157.5 cm (5' 2") 03/10/2018 8:40 AM CDT Body Mass Index 23.52 03/10/2018 8:40 AM CDT Plan of Treatment Health Maintenance Due Date Last Done Comments CERVICAL CANCER SCREENING 2009 INFLUENZA VACCINE 02/11/2018 04/10/2016 Procedures Procedure Name Priority Date/Time Associated Comments Diagnosis ZZESTIMATED GFR STAT 01/29/2018 7:35 Results for this [...] Optic disc edema the results section. after 04/30/2017 Results Estimated GFR (01/29/2018 7:35 PM) GFR Non Af Amer 85 mL/min/1.73 m2 [facility] DEPARTMENT OF PATHOLOGY AND GENOMIC MEDICINE GFR Af Amer >90 mL/min/1.73 m2 [facility] DEPARTMENT OF Comment: PATHOLOGY AND GENOMIC [...] Americans. Specimen Plasma specimen Performing Organization Address City/State/Zipcode Phone Number [facility] DEPARTMENT OF PATHOLOGY AND [address] [place] [address] [facility] Troponin (01/29/2018 7:35 PM) Troponin <0.30 0.00 - 0.30 ng/mL [facility] DEPARTMENT OF PATHOLOGY Comment: AND GENOMIC MEDICINE 0.30 - 1.49 ng/mlMay indicate increased risk of acute coronary syndrome. >=1.5 ng/mlConsistent with acute myocardial infarction. The diagnostic value of a single normal or non-diagnostic result is questionable.Serial samples at 2-6 hour intervals are required to rule out acute myocardial injury. Specimen Plasma specimen Performing Organization Address City/State/Zipcode Phone Number [facility] DEPARTMENT OF PATHOLOGY AND [address] [place] [address] [facility] CBC with platelet and differential (01/29/2018 7:35 PM) WBC 5.77 4.50 - 11.00 k/uL [facility] DEPARTMENT OF PATHOLOGY AND GENOMIC MEDICINE RBC 4.10 (L) 4.20 - 5.50 m/uL [facility] DEPARTMENT OF PATHOLOGY AND GENOMIC MEDICINE HGB 12.6 12.0 - 16.0 g/dL [facility] DEPARTMENT OF PATHOLOGY AND GENOMIC MEDICINE HCT 38.9 37.0 - 47.0 % [facility] DEPARTMENT OF PATHOLOGY AND GENOMIC MEDICINE MCV 94.9 82.0 - 100.0 fL [facility] DEPARTMENT OF PATHOLOGY AND GENOMIC MEDICINE MCH 30.7 27.0 - 34.0 pg [facility] DEPARTMENT OF PATHOLOGY AND GENOMIC MEDICINE MCHC 32.4 31.0 - 37.0 g/dL [facility] DEPARTMENT OF PATHOLOGY AND GENOMIC MEDICINE RDW - SD 41.5 37.0 - 55.0 fL [facility] DEPARTMENT OF PATHOLOGY AND GENOMIC MEDICINE MPV 10.1 8.8 - 13.2 fL [facility] DEPARTMENT OF PATHOLOGY AND GENOMIC MEDICINE Platelet count 296 150 - 400 k/uL [facility] DEPARTMENT OF PATHOLOGY AND GENOMIC MEDICINE Nucleated RBC 0.00 /100 WBC [facility] DEPARTMENT OF PATHOLOGY AND GENOMIC MEDICINE Neutrophils 44.0 39.0 - 69.0 % [facility] DEPARTMENT OF PATHOLOGY AND GENOMIC MEDICINE Lymphocytes 41.8 25.0 - 45.0 % [facility] DEPARTMENT OF PATHOLOGY AND GENOMIC MEDICINE Monocytes 8.0 0.0 - 10.0 % [facility] DEPARTMENT OF PATHOLOGY AND GENOMIC MEDICINE Eosinophils 4.5 0.0 - 5.0 % [facility] DEPARTMENT OF PATHOLOGY AND GENOMIC MEDICINE Basophils 1.4 (H) 0.0 - 1.0 % [facility] DEPARTMENT OF PATHOLOGY AND GENOMIC MEDICINE Immature granulocytes 0.3Comment: 0.0 - 1.0 % [facility] DEPARTMENT OF "Immature PATHOLOGY AND GENOMIC granulocytes" MEDICINE (promyelocytes, myelocytes, metamyelocytes) Specimen Blood Performing Organization Address City/[facility] Phone Number [facility] DEPARTMENT OF PATHOLOGY AND [address] [place] [phone] [facility] B natriuretic peptide (01/29/2018 7:35 PM) BNP 7 0 - 100 pg/mL [facility] DEPARTMENT OF PATHOLOGY AND GENOMIC MEDICINE Specimen Blood Performing Organization Address City/[facility] Phone Number [facility] DEPARTMENT OF PATHOLOGY AND [address] [place] [phone] [facility] Comprehensive metabolic panel (01/29/2018 7:35 PM) Sodium 139 135 - 148 mEq/L [facility] DEPARTMENT OF PATHOLOGY AND GENOMIC MEDICINE Potassium 4.6 3.5 - 5.0 mEq/L [facility] DEPARTMENT OF PATHOLOGY AND GENOMIC MEDICINE Chloride 101 98 - 112 mEq/L [facility] DEPARTMENT OF PATHOLOGY AND GENOMIC MEDICINE CO2 29 24 - 31 mEq/L [facility] DEPARTMENT OF PATHOLOGY AND GENOMIC MEDICINE Anion gap 9@ANIO 7 - 15 mEq/L [facility] DEPARTMENT OF PATHOLOGY AND GENOMIC MEDICINE BUN 15 6 - 20 mg/dL [facility] DEPARTMENT OF PATHOLOGY AND GENOMIC MEDICINE Creatinine 0.8 0.5 - 0.9 mg/dL [facility] DEPARTMENT OF PATHOLOGY AND GENOMIC MEDICINE Glucose 83 65 - 99 mg/dL [facility] DEPARTMENT OF PATHOLOGY AND GENOMIC MEDICINE Calcium 9.2 8.3 - 10.2 mg/dL [facility] DEPARTMENT OF PATHOLOGY AND GENOMIC MEDICINE Protein 6.9 6.3 - 8.3 g/dL [facility] DEPARTMENT OF Comment: PATHOLOGY AND GENOMIC [place] 4.6-7.0 g/dL MEDICINE 1 week 4.4-7.6 g/dL 7 months-1year5.1-7.3 g/dL 1-2 years5.6-7.5 g/dL >3 years6.0-8.0 g/dL 18-150 6.3-8.3 g/dL Albumin 3.6 3.5 - 5.0 g/dL [facility] DEPARTMENT OF PATHOLOGY AND GENOMIC MEDICINE A/G ratio 1.1 0.7 - 3.8 [facility] DEPARTMENT OF PATHOLOGY AND GENOMIC MEDICINE Alkaline phosphatase 56 35 - 104 U/L [facility] DEPARTMENT OF PATHOLOGY AND GENOMIC MEDICINE AST 26 10 - 35 U/L [facility] DEPARTMENT OF PATHOLOGY AND GENOMIC MEDICINE ALT 24 5 - 50 U/L [facility] DEPARTMENT OF PATHOLOGY AND GENOMIC MEDICINE Total bilirubin <0.2 0.0 - 1.2 mg/dL [facility] DEPARTMENT OF PATHOLOGY AND GENOMIC MEDICINE Specimen Plasma specimen Performing Organization Address City/[facility] Phone Number [facility] DEPARTMENT OF PATHOLOGY AND [address] [place] [address] [facility] ECG 12 lead (01/29/2018 7:34 PM) Ventricular rate 82 [facility] MUSE Atrial rate 82 [facility] MUSE FL interval 104 HM MUSE QRSD interval 84 [facility] MUSE QT interval 388 [facility] MUSE QTC interval 453 [facility] MUSE P axis 1 61 [facility] MUSE QRS axis 1 51 [facility] MUSE T wave axis 44 [facility] MUSE EKG impression Sinus rhythm with short FL-Otherwise normal [facility] MUSE ECG-No previous ECGs available- Performing Organization Address [facility] Phone Number [facility] [address] [place] [address] OCT, Optic Nerve - OU (10/16/2017 7:59 AM) Narrative Performed At OD 96 OS 96 Automated Visual Field, Extended - OU (10/16/2017 7:59 AM) Narrative Performed At Right Eye Threshold was 24-2. Strategy was NANCY. -4.80. Findings include normal observations, non-specific defects. Left Eye Threshold was 24-2. Strategy was NANCY. -3.98. Findings include normal observations, non-specific defects. after 04/30/2017 Insurance Payer Benefit Plan / Group Subscriber ID Type Phone Address BCBS BCBS CHOICE PPO/[employer]ER[employer] EMPL PPO xxxxxxxxxxxx PPO Home: [id number] [place] [phone] [address]
[2018-05-01] MEDS ORDERED: ALBUTEROL 2.5 MG/3 ML NEB SOL IH PRN (12:46)
[2018-05-01] MEDS ORDERED: LOPERAMIDE HCL 2 MG CAPSULE PO PRN (13:00)
[2018-05-01] MEDS ORDERED: ONDANSETRON 4 MG/2 ML VIAL IV PRN (13:00)
[2018-05-01] MEDS ORDERED: POLYETHYL GLY 3350 17 GM/DOSE PO PRN (13:00)
[2018-05-01] MEDS: CEFTRIAXONE/SWI 1gm 1 GM/10 ML SYR IVP SCH (13:00)
[2018-05-01] MEDS ORDERED: ONDANSETRON 4 MG (ODT) TAB PO PRN (13:00)
[2018-05-01] MEDS: NACHLORIDE 0.45% 1,000 ML IV SCH (13:00)
[2018-05-01] MEDS ORDERED: ACETAMINOPHEN 325 MG TABLET PO PRN (13:00)
[2018-05-01] MEDS ORDERED: PNEUMOCOCCAL VACCINE 0.5 ML IMVAC ONE (13:00)
[2018-05-01] MEDS ORDERED: INFLUENZA VACCINE (for 3y+) 0.5 ML DOSE IMVAC ONE (13:00)
[2018-05-01 13:17] LABS: Absolute Lymphocytes (CBC) 1.4 K/uL (0.7-4.9); Absolute Monocytes 0.3 K/uL (0.1-1.3); Absolute Neutrophil 2.4 K/uL (1.8-8.0); Eosinophils % 0.6 % (0-4.4); Hematocrit 32.4 % (36.0-45.0); Lymphocytes % 33.4 % (15.3-44.8); MCH 30.2 pg (27.0-35.0); MCV 88.6 fL (80-100); MPV 8.1 fL (7.6-11.3); Monocytes % 7.3 % (3.3-12.3); RBC Red Blood Cell Count 3.66 M/uL (3.86-4.86)
[2018-05-01 13:34] LABS: Protime INR 2.02
[2018-05-01 13:48] LABS: ALT/SGPT 29 U/L (12-78); AST/SGOT 28 U/L (15-37); Albumin 4.1 g/dL (3.4-5.0); Alkaline Phosphatase 62 U/L (45-117); BUN Blood Urea Nitrogen 14 mg/dL (7-18); Bicarbonate 28 mmol/L (21-32); Bilirubin Direct < 0.1 mg/dL (0-0.2); Bilirubin Total 0.2 mg/dL (0.2-1.0); Glucose Level 81 mg/dL (74-106); Magnesium 2.1 mg/dL (1.8-2.4); Phosphorus 3.9 mg/dL (2.5-4.9); Potassium 3.9 mmol/L (3.5-5.1); Protein, Total 7.5 g/dL (6.4-8.2); Sodium Level 140 mmol/L (136-145); Thyroid Stimulating Hormone 0.473 uIU/mL (0.360-3.740)
--- NOTE | 2018-05-01 13:54 | RAD REPORT ---
EXAM DESCRIPTION: Eddie Lockett (2 Views)05/01/2018 1:41 pm CLINICAL HISTORY: Shortness of breath COMPARISON: February 2018 FINDINGS: The lungs appear clear of acute infiltrate. The heart is normal size IMPRESSION: No acute abnormalities displayed
[2018-05-01] MEDS ORDERED: LEVALBUTEROL 0.63 MG/3 ML NEB IH SCH (14:00)
[2018-05-01] MEDS ORDERED: IPRATROPIUM BROM 0.5MG/2.5ML IH SCH (14:00)
[2018-05-01] MEDS ORDERED: IPRATROPIUM BROM 0.5MG/2.5ML IH PRN (14:02)
[2018-05-01] MEDS ORDERED: LEVALBUTEROL 0.63 MG/3 ML NEB IH PRN (14:07)
--- NOTE | 2018-05-01 14:53 | RAD REPORT ---
EXAM DESCRIPTION: US - Transvaginal Study Probe - 05/01/2018 1:57 pm CLINICAL HISTORY: Pelvic pain COMPARISON: February 2018 CT FINDINGS: The uterus measures 8 x 4 x 5cm. A fibroid is not seen. Endometrial stripe measures 13 mil limeters The ovaries are normal in size and echotexture. A 1.6 centimeter left ovarian follicle is seen. No significant free fluid is seen. IMPRESSION: The right ovarian cyst has resolved. 1.6 centimeter left ovarian follicle without significant free-fluid
--- NOTE | 2018-05-01 18:58 | CON ---
Date of Consultation: 05/01/2018 Reason: Dilated appendix and right lower quadrant abdominal pain. History Of Present Illness: The patient is a 27-year-old female, who started having diffuse abdomina l pain, localizing to the right lower quadrant last week and went to the [facility] and jus t showed enlarged appendix, however, there was no significant inflammation. She was discharged and i s followed up with Dr. Coburn and she continues to have right lower quadrant abdominal pain. She had nausea and vomiting when the pain initially started and no diarrhea or constipation. No dysuria or h ematuria. No sore throat, runny nose, cough, headaches, or dizziness. No chest pain. No fever or c hills. Review of Systems: Otherwise unremarkable. Past Medical History: Significant for lupus, PE and connective tissue disorder. Past Surgical History: Tubal. Allergies: INCLUDE MEPERIDINE. Social History: She denies smoking or drinking. Family History: Noncontributory. Physical Examination: Vital Signs: Stable. She is currently afebrile. General: She is awake, alert, and oriented x3. Head and Neck: Cranial nerves 2 through 12 are grossly within normal limit. No neck masses. No JVD . Throat clear. Neck is supple. Chest: Clear. Heart: S1 and S2. Abdomen: Soft, nondistended, with positive bowel sounds. Positive right lower quadrant tenderness. No peritonitis and no abdominal wall hernia appreciated. Extremities: Adequately perfused. Nontender. Neuro: Nonfocal. Diagnostic Data: CT scan from [facility] reviewed and essentially shows enlarged appendix, not well visua lized and no significant inflammation. White count is 4.2, H and H are 11.1 and 32.4. Please note, the patient is on Eliquis, platelet count is 288, last dose was this morning. Her INR is 2.02. All of her electrolytes and LFTs are within normal limit. She has an ultrasound of the pelvis pending. Assessment: A 27-year-old female with lupus and pulmonary embolism with right lower quadrant abdomin al pain. Etiology could be appendix, also could be secondary to her lupus. She does have mildly enl arged lymph nodes in that area, but as she has been tender and not improving over the last week, my r ecommendations would be to stop the Eliquis for at least 24 hours and we will proceed with diagnostic laparoscopy, laparoscopic appendectomy, possible open. The patient understands the risks, benefits, and alternatives and agrees to procedure. MARGARITO/TERRANCE Voice ID: [id number] Report ID: [id number]
[2018-05-01] MEDS: DIPHENHYDRAMINE 25 MG TAB/CAP PO PRN (22:38)
[2018-05-01 22:59] LABS: Specific Gravity >= 1.030 (1.005-1.030); Urine Appearance CLEAR; Urine Bilirubin NEGATIVE (NEG); Urine Blood NEGATIVE (NEG); Urine Color YELLOW; Urine Glucose NEGATIVE (NEG); Urine Microscopic Reflex NO UMIC; Urine Protein NEGATIVE (NEG); Urine Specific Gravity >=1.030 (1.005-1.030); Urine Urobilinogen 0.2 mg/dL (0.2-1.0); Urine pH 6.5 (5.0-7.0)
--- NOTE | 2018-05-02 04:19 | EKG ---
Test Date: 2018-05-01 Test Time: 12:56:37 [employer] Architect: PALAK-T MEASUREMENT RESULTS: Intervals: Rate: 84 FL: 132 QRSD: 80 QT: 378 QTc: 446 Aneta: P: 58 FL: 132 QRS: 42 T: 40 INTERPRETIVE STATEMENTS: Normal sinus rhythm Normal ECG Compared to ECG 03/05/2018 13:06:49 No significant changes Electronically Signed On 05-02-18 04:17:22 CDT by Sd Glaser
[2018-05-02 06:10] LABS: Absolute Monocytes 0.4 K/uL (0.1-1.3); Absolute Neutrophil 1.9 K/uL (1.8-8.0); Basophils % 1.3 % (0-1.3); Eosinophils % 2.7 % (0-4.4); Lymphocytes % 45.1 % (15.3-44.8); MCH 29.6 pg (27.0-35.0); MCV 88.3 fL (80-100)
[2018-05-02 06:18] LABS: BUN Blood Urea Nitrogen 17 mg/dL (7-18); Bicarbonate 27 mmol/L (21-32); Glucose Level 86 mg/dL (74-106); Magnesium 1.9 mg/dL (1.8-2.4); Potassium 4.1 mmol/L (3.5-5.1); Sodium Level 140 mmol/L (136-145)
[2018-05-02] MEDS ORDERED: Ringers Lactate 1,000 ML IV ONE (07:36)
[2018-05-02] MEDS ORDERED: LIDOCAINE 2% MPF 5 ML VIAL ONE (08:02)
[2018-05-02] MEDS ORDERED: FENTANYL CITR 100 MCG/2 ML ONE (08:02)
[2018-05-02] MEDS ORDERED: PROPOFOL 200 MG/20 ML VIAL IV ONE (08:02)
[2018-05-02] MEDS ORDERED: MIDAZOLAM HCL 2 MG/2 ML INJ ONE (08:02)
[2018-05-02] MEDS ORDERED: ONDANSETRON HCL 40 MG/20 ML VIAL ONE (08:03)
[2018-05-02] MEDS ORDERED: GLYCOPYRROLATE 0.2 MG/ML SYR ONE (08:06)
[2018-05-02] MEDS ORDERED: ROCURONIUM 50 MG/5 ML VIAL IV ONE (08:07)
[2018-05-02] MEDS ORDERED: NEOSTIGMINE 1 MG/ML -5 ML SYRINGE ONE (08:07)
--- NOTE | 2018-05-02 08:48 | P.OP ---
Preoperative diagnosis: RLQ Abdominal Pain, abnormal appendix Postoperative diagnosis: same Primary procedure: Diagnostic Lap, Lap Appy Anesthesia: Gen Estimated blood loss: min Specimen: appy Findings: as above Complications: None Transferred to: Recovery Room Condition: Good
[2018-05-02] MEDS: CEFTRIAXONE/SWI 1gm 1 GM/10 ML SYR IVP SCH (09:00)
[2018-05-02] MEDS ORDERED: HYDROMORPHONE HCL 1 MG/ML INJ ONE (09:08)
[2018-05-02] MEDS ORDERED: ONDANSETRON 4 MG/2 ML VIAL IV PRN (09:13)
[2018-05-02] MEDS ORDERED: DIPHENHYDRAMINE 50 MG/ML VIAL IV ONE (10:24)
[2018-05-02] MEDS ORDERED: DIPHENHYDRAMINE 12.5MG/5ML LIQ PO ONE (11:00)
--- NOTE | 2018-05-02 13:22 | OP ---
Surgeon: Janak García MD Preoperative Diagnoses: Right lower quadrant abdominal pain. Abnormal appendix. Postoperative Diagnoses: Right lower quadrant abdominal pain. Abnormal appendix. Procedures Performed: Diagnostic laparoscopy, laparoscopic appendectomy. Estimated Blood Loss: Minimal. Findings: As above. Anesthesia: General. Complications: None. Disposition: The patient tolerated the procedure in stable condition and taken to Recovery in good g eneral condition. Operative Note: The patient brought to the OR and placed in supine position. General anesthesia was begun. The patient was prepped and draped in the usual sterile fashion. Marcaine 0.5% was infiltra tyshawn locally. A 15-blade was used to make a 1 cm infraumbilical midline incision. Subcutaneous tissu e divided. The fascia was identified and divided. A #1 Vicryl stay suture was placed. Peritoneal c avity was entered with blunt dissection. A 12-mm trocar was placed into the peritoneal cavity under direct vision. Pneumoperitoneum was established. Then two 5-mm trocars placed, 1 in the suprapubic region, 1 in the left lower quadrant. Laparoscopy revealed normal uterus, normal tubes, normal right ovary. The left ovary had a physiologic cyst, hemorrhagic. Normal small bowel. Normal colon. Nor mal liver. Normal gallbladder. Normal stomach. No evidence of peritoneal disease. No lymphadenopa thy clinically that could be appreciated. Appendix was somewhat dilated. There was no significant s uppuration or acute infection seen. There were some injection of blood vessels consistent with a pos sible chronic appendicitis. Base of the appendix, mesoappendix clearly identified. Endo-KRISTINA staplin g device was used to divide both structures. Then, the appendix removed through the umbilicus via an EndoCatch bag. Right lower quadrant examined, no evidence of bleeding or bowel injury appreciated. There was some serous fluid in the cul-de-sac, which was aspirated. There was no other evidence of disease. Subsequently, all trocars were removed under direct vision. Stay sutures were tied to each other across the fascial defect. Subcutaneous wounds were irrigated. Bleeding controlled with caut jose alejandro and then 3-0 chromic used to reapproximate subcutaneous tissue and close the skin. Sterile dress ing was applied. The patient was awakened and taken to Recovery in good general condition. /MODL Voice ID: [id number] Report ID: [id number]
[2018-05-02] MEDS: HYDROMORPHONE HCL 1 MG/ML INJ IV PRN ×2 (14:06→16:49)
[2018-05-02] MEDS ORDERED: FLUDROCORTISONE 0.1 MG TAB PO PRN (18:18)
--- NOTE | 2018-05-02 18:40 | P.PN ---
Subjective Date of Service: 05/02/18 Chief Complaint: dyspnea Subjective: C/O voiced KAL HAS SLE WITH HISTORY OF SMALL PE MONTHS AGO, HAD TO FOR APPENDECTOMY. SHE THIS PM COMPLAINS OF DYSPNEA. THERE IS NO CHEST PAIN. Review of Systems 10-point ROS is otherwise unremarkable Respiratory: Shortness of Breath Physical Examination - Vital Signs Temperature: 97.0 F Blood Pressure: 108/61 Pulse: 86 Respirations: 18 Pulse Ox (%): 100 - Physical Exam General: Alert, In no apparent distress HEENT: Atraumatic, PERRLA, EOMI Neck: Supple, JVD not distended Respiratory: Clear to auscultation bilaterally, Normal air movement Cardiovascular: Regular rate/rhythm, Normal S1 S2 Gastrointestinal: Normal bowel sounds, No tenderness Musculoskeletal: No tenderness Integumentary: No rashes Neurological: Normal speech, Normal tone, Normal affect Lymphatics: No axilla or inguinal lymphadenopathy - Studies Laboratory Data (last 24 hrs) 05/02/18 04:38: Sodium 140, Potassium 4.1, BUN 17, Creatinine 0.60, Glucose 86, Magnesium 1.9 05/02/18 04:38: WBC 4.4, Hgb 10.1 L, Hct 30.0 L, Plt Count 310 Medications List Reviewed: Yes Assessment And Plan - Current Problems (Diagnosis) (1) Dyspnea Current Visit: Yes Status: Acute Plan: CHECK CXR, AND LABS. ALREADY ON NEBS AND BRAXTON. SPIROMETER. WILL FU I CLINICALLY SEE NO CAUSE OF DYSPNEA. (2) Acute appendicitis Current Visit: Yes Status: Acute Plan: SP APPENDECTOMY.
[2018-05-02 19:01] LABS: Hematocrit 30.5 % (36.0-45.0); MCH 29.5 pg (27.0-35.0); MCV 89.2 fL (80-100); MPV 7.9 fL (7.6-11.3); RBC Red Blood Cell Count 3.42 M/uL (3.86-4.86)
[2018-05-02 19:19] LABS: BUN Blood Urea Nitrogen 10 mg/dL (7-18); Bicarbonate 29 mmol/L (21-32); Glucose Level 120 mg/dL (74-106); NT PRO-BNP 95 pg/mL (<125); Potassium 4.2 mmol/L (3.5-5.1); Sodium Level 137 mmol/L (136-145)
--- NOTE | 2018-05-02 20:47 | RAD REPORT ---
EXAM DESCRIPTION: Eddie Lockett (2 Views)05/02/2018 7:48 pm CLINICAL HISTORY: Shortness of breath COMPARISON: 05/01/2018 FINDINGS: Small lucency is present beneath the right hemidiaphragm. Lungs appear clear. The heart is normal size IMPRESSION: Small lucency beneath the right hemidiaphragm is equivocal for small amount of free air within the abdomen. If the patient has clinical symptoms to suggest an acute abdomen then a decubitus film with the left side of the abdomen down would be recommended for further evaluation Examination was discussed with the patient's nurse Arabella 8:35 p.m. 05/02/2018
[2018-05-02] MEDS: NACHLORIDE 0.45% 1,000 ML IV SCH (20:49)
[2018-05-02] MEDS: DIPHENHYDRAMINE 25 MG TAB/CAP PO PRN (22:31)
[2018-05-02] MEDS: HYDROCODONE/APAP 7.5/325 MG TAB PO PRN (22:31)
[2018-05-03] MEDS: HYDROCODONE/APAP 7.5/325 MG TAB PO PRN (03:24)
[2018-05-03 05:29] LABS: Absolute Lymphocytes (CBC) 1.5 K/uL (0.7-4.9); Absolute Monocytes 0.4 K/uL (0.1-1.3); Absolute Neutrophil 3.2 K/uL (1.8-8.0); Eosinophils % 3.3 % (0-4.4); Hematocrit 29.7 % (36.0-45.0); Lymphocytes % 28.3 % (15.3-44.8); MCH 29.6 pg (27.0-35.0); MCV 88.6 fL (80-100); MPV 8.3 fL (7.6-11.3); Monocytes % 7.9 % (3.3-12.3); RBC Red Blood Cell Count 3.35 M/uL (3.86-4.86)
[2018-05-03 05:44] LABS: BUN Blood Urea Nitrogen 7 mg/dL (7-18); Bicarbonate 28 mmol/L (21-32); Glucose Level 102 mg/dL (74-106); Magnesium 1.9 mg/dL (1.8-2.4); Potassium 3.8 mmol/L (3.5-5.1); Sodium Level 139 mmol/L (136-145)
[2018-05-03] MEDS: CEFTRIAXONE/SWI 1gm 1 GM/10 ML SYR IVP SCH (08:51)
[2018-05-03] MEDS ORDERED: LISDEXAMFETAMINE DIMESYLATE PO SCH (09:00)
[2018-05-03] MEDS ORDERED: PANTOPRAZOLE 40MG TABLET PO SCH (09:00)
[2018-05-03] MEDS ORDERED: HYDROXYCHLOROQUINE 200MG TAB PO SCH (09:00)
[2018-05-03] MEDS ORDERED: RIVAROXABAN 10 MG TABLET PO SCH (09:00)
--- NOTE | 2018-05-03 14:51 | PN ---
Date of Progress Note: 05/03/2018 Subjective: The patient is awake, alert, tolerating diet, ambulating, pain controlled with p.o. pain medication, and afebrile. Objective: Vital Signs: Stable, afebrile. Abdomen: Benign. Assessment: Status post diagnostic laparoscopic appendectomy. Recommendations: The patient is cleared for discharge from Surgery standpoint. Follow up in my offi ce in a week. Discharge instructions were given. /MODL Voice ID: [id number] Report ID: [id number]
[2018-05-04 10:46] LABS: Vitamin D 1,25-Dihydroxy Total 29 pg/mL (18-72); Vitamin D,1,25-OH2, D2 <8 pg/mL
== END 2018-05-03 11:22 | disposition home or self-care (01) ==
LOC: 2ND 12:02
PROVIDERS: ADMIT Internal Medicine; ATTEND Internal Medicine
PROC: 0DTJ4ZZ Resection of Appendix, Percutaneous Endoscopic Approach (ICD-10-PCS; principal; 2018-05-02 08:00)
DX: K35.80 Unspecified acute appendicitis (principal); N83.202 Unspecified ovarian cyst, left side; M32.9 Systemic lupus erythematosus, unspecified; Z86.711 Personal history of pulmonary embolism
CPT/HCPCS: 36415; 71046; 76830; 80048; 80076; 81003; 81025; 82607; 82652; 83735; 83880; 84100; 84443; 85025; 85027; 85379; 85610; 85730; 87040; 88304; 93005; 94640; G0378; J0696; J1170; J2250; J2405; J2710; J3010

== ENCOUNTER 2018-10-15 15:38 | Emergency (ER) | payer BC ==
--- OUTSIDE RECORDS SUMMARY | 2018-10-15 15:41 | XMS REPORT | Continuity of Care Document ---
:1990 Author Organization [facility] Care Team Providers Name Role Phone CIERRA Douglass, Cm Unavailable Unavailable Insurance Providers Payer name Policy type / Policy ID Covered alliance party ID Policy Candelaria Coverage type [employer] - AETNA SIGNAT AETNA [employer] - AETNA SIGNAT AETNA AETNA AETNA AETNA Encounters Encounter Performer Location Date Lab Report Cm Douglass APRN [facility] Mar 28, 2014 Allergies, Adverse Reactions, Alerts [...] 28, 2014 Active ADDERALL XR 30 MG [id number] 1 Ttab po qam Mar 28, 2014 [...]
--- OUTSIDE RECORDS SUMMARY | 2018-10-15 15:41 | XMS REPORT | Clinical Summary ---
:1990 Author Organization [facility] Address [address] [place] [address] Care Team Providers Name Role Phone Leon Coburn MD Primary Care Provider Allergies Active Allergy Reactions Severity Noted Date Comments Meperidine 08/17/2013 Medications Medication Sig Dispensed Refills Start End Date Status Date lisdexamfetamine Take 70 mg by 0 Active (VYVANSE) 70 MG mouth every capsule morning. escitalopram (LEXAPRO) Take 20 mg by 0 Active 20 MG tablet mouth daily. RESTASIS MULTIDOSE as needed. Few 0 Active 0.05 % drops drops in each 8 eye PRN fludrocortisone TK 1 T PO D FOR 1 Active (FLORINEF) 0.1 mg ORTHOSTASIS 8 tablet UNABLE TO FIND as needed. 0 Active Zquil for sleep carvedilol (COREG) TK 1 T PO BID 1 Active 3.125 MG tablet WC 8 ondansetron ODT as needed. 0 Active (ZOFRAN-ODT) 4 MG 8 disintegrating tablet pantoprazole TK 1 T PO D 0 Active (PROTONIX) 40 MG EC 8 tablet magnesium chloride Take by mouth 2 0 Active (SLOW-MAG ORAL) (two) times a day. topiramate (TOPAMAX) TK 1 T PO HS 3 05/27/20 Discontinued 25 MG tablet 8 18 NORETHINDRONE AC-ETH Take by mouth. 0 03/10/20 Discontinued ESTRADIOL (LOESTRIN 18 1.5/30, 21, ORAL) meloxicam (MOBIC) 15 Take 15 mg by 0 03/10/20 Discontinued mg tablet mouth daily. 18 amitriptyline (ELAVIL) Take 25 mg by 0 03/10/20 Discontinued 25 MG tablet mouth nightly. 18 predniSONE (DELTASONE) Take 5 mg by 0 03/10/20 Discontinued 5 mg tablet mouth 3 (three) 18 times a day. lidocaine (LIDODERM) 5 Place 1 patch 10 patch 0 02/29/20 % on the skin 8 18 daily for 30 days. Remove & Discard patch within 12 hours or as directed by hydroxychloroquine 1 pill a day 0 10/06/19 Discontinued (PLAQUENIL) 200 mg 8 19 tablet rivaroxaban (XARELTO) daily. 0 10/06/19 Discontinued 20 mg tablet 8 19 traMADol (ULTRAM) 50 0 05/27/20 Discontinued mg tablet 8 18 SUMAtriptan (IMITREX) TK 1 T PO AOS 5 05/27/20 Discontinued 25 MG tablet OF MCCORMACK. NOVEMBER 18 REPEAT ONE IN 2 H IF NO MCCORMACK RELIEF. MAX OF 4 TABLETS IN 24 H b complex vitamins Take 1 capsule 0 05/27/20 Discontinued capsule by mouth daily. 18 L. rhamnosus GG/inulin Take by mouth. 0 05/27/20 Discontinued (CULTURELLE PROBIOTICS 18 ORAL) acetaminophen-codeine TK 1-2 TS PO Q 0 10/06/19 Discontinued (TYLENOL WITH CODEINE 6 H PRN FOR 8 19 #3) 300-30 mg per PAIN tablet UNABLE TO FIND 4 (four) times 0 10/06/19 Discontinued a day. OGF 19 Formula Active Problems No known active problems Encounters Date Type Specialty Care Team Description 10/14/2018 Telephone Rheumatology Argenis Chan MA 10/05/2018 Office Visit Rheumatology Yunier Luo Hypermobility arthralgia (Primary Dx); MD Sophia POTS (postural orthostatic tachycardia syndrome); Positive VINCE (antinuclear antibody) 10/05/2018 Extended Medical Rheumatology Yunier Luo Positive VINCE ( antinuclear antibody) (Primary Dx); Eliot Cortes MD Hypermobility arthralgia 09/10/2018 Extended Medical Rheumatology Yunier Luo MD 05/27/2018 Office Visit Cardiology Ed[place]ira, Screening for cardiovascular condition (Primary Dx); MD Malachi History of pulmonary embolism; Adequate anticoagulation on anticoagulant therapy 03/10/2018 Office Visit Rheumatology Yunier Luo Positive [...] pain, bilateral; Dry eyes; Frequent headaches after 10/14/2017 Family History Medical History Relation Name Comments [...] Assigned at Date Recorded Not on file Job Start Date Occupation Industry Not on file Not on file Not on file Travel History Travel Start Travel End No recent travel history available. Last Filed Vital Signs Vital Sign Reading Time Taken Blood Pressure 128/85 10/05/2018 4:13 PM CDT Pulse 89 10/05/2018 4:13 PM CDT Temperature 36.9 C (98.5 F) 10/05/2018 4:13 PM CDT Respiratory Rate 18 10/05/2018 4:13 PM CDT Oxygen Saturation 100% 10/05/2018 4:13 PM CDT Inhaled Oxygen Concentration - - Weight 57.5 kg (126 lb 12.8 oz) 10/05/2018 4:13 PM CDT Height 159.5 cm (5' 2.8") 10/05/2018 4:13 PM CDT Body Mass Index 22.61 10/05/2018 4:13 PM CDT Plan of Treatment Date Type Specialty Care Team Description 02/05/2019 Office Visit Rheumatology Yunier Luo MD [address] [facility] [address] [place] [address] Health Maintenance Due Date Last Done Comments CERVICAL CANCER SCREENING 2009 INFLUENZA VACCINE 02/11/2019 Procedures Procedure Name Priority Date/Time Associated Diagnosis Comments ECG 12-LEAD Routine 05/27/2018 8:26 Screening for Results for this AM [employer] D[employer]Y LPN cardiovascular procedure are in condition the results section. ZZESTIMATED GFR STAT 01/29/2018 7:35 Results for [...] Results for this FIELD, EXTENDED - OU AM CDT field defects procedure are in - BOTH EYES Optic disc edema the results section. after 10/14/2017 Results ECG 12 lead (05/27/2018 8:26 AM [employer] D[employer] LPN)Only the most recent of2 resultswithin the time period is included. Ventricular rate 73 [facility] Atrial rate 73 [facility] PA interval 132 [facility] QRSD interval 86 [facility] QT interval 376 [facility] QTC interval 414 [facility] P axis 1 47 [facility] QRS axis 1 22 [facility] T wave axis 30 [facility] EKG impression Normal sinus rhythm-Normal ECG-In automated [facility] comparison with ECG of 29-JAN-2018 19:34,-No significant change was found- Narrative Performed At Performing Organization Address City/State/Zipcode Phone Number [facility] [address] [place] [address] Estimated GFR (01/29/2018 7:35 PM CDT) GFR Non Af Amer 85 mL/min/1.73 m2 [facility] DEPARTMENT OF PATHOLOGY AND GENOMIC MEDICINE GFR Af Amer >90 mL/min/1.73 m2 [facility] DEPARTMENT OF Comment: PATHOLOGY AND GENOMIC [...] specimen Performing Organization Address City/State/Zipcode Phone Number [facility] DEPARTMENT OF PATHOLOGY AND [address] [place] [id number] [facility] Troponin (01/29/2018 7:35 PM CDT) Troponin <0.30 0.00 - 0.30 ng/mL [facility] DEPARTMENT OF PATHOLOGY Comment: AND GENOMIC MEDICINE 0.30 - 1.49 ng/mlMay indicate increased risk of acute coronary syndrome. >=1.5 ng/mlConsistent with acute myocardial infarction. The diagnostic value of a single normal or non-diagnostic result is questionable.Serial samples at 2-6 hour intervals are required to rule out acute myocardial injury. Specimen Plasma specimen Performing Organization Address City/State/Zipcode Phone Number [facility] DEPARTMENT OF PATHOLOGY AND [address] [place], [place] [phone] [facility] CBC with platelet and differential (01/29/2018 7:35 PM CDT) WBC 5.77 4.50 - 11.00 k/uL [facility] DEPARTMENT OF PATHOLOGY AND GENOMIC MEDICINE RBC 4.10 (L) 4.20 - 5.50 m/uL [facility] DEPARTMENT OF PATHOLOGY AND GENOMIC MEDICINE HGB 12.6 12.0 - 16.0 g/dL [facility] DEPARTMENT OF PATHOLOGY AND GENOMIC MEDICINE HCT 38.9 37.0 - 47.0 % [facility] DEPARTMENT OF PATHOLOGY AND GENOMIC MEDICINE MCV 94.9 82.0 - 100.0 fL [facility] DEPARTMENT OF PATHOLOGY AND GENOMIC MEDICINE MCH 30.7 27.0 - 34.0 pg [facility] DEPARTMENT OF PATHOLOGY AND GENOMIC MEDICINE MCHC 32.4 31.0 - 37.0 g/dL [facility] DEPARTMENT OF PATHOLOGY AND GENOMIC MEDICINE RDW - SD 41.5 37.0 - 55.0 fL [facility] DEPARTMENT OF PATHOLOGY AND GENOMIC MEDICINE MPV 10.1 8.8 - 13.2 fL [facility] DEPARTMENT OF PATHOLOGY AND GENOMIC MEDICINE Platelet count 296 150 - 400 k/uL [facility] DEPARTMENT OF PATHOLOGY AND GENOMIC MEDICINE Nucleated RBC 0.00 /100 WBC [facility] DEPARTMENT OF PATHOLOGY AND GENOMIC MEDICINE Neutrophils 44.0 39.0 - 69.0 % [facility] DEPARTMENT OF PATHOLOGY AND GENOMIC MEDICINE Lymphocytes 41.8 25.0 - 45.0 % [facility] DEPARTMENT OF PATHOLOGY AND GENOMIC MEDICINE Monocytes 8.0 0.0 - 10.0 % [facility] DEPARTMENT OF PATHOLOGY AND GENOMIC MEDICINE Eosinophils 4.5 0.0 - 5.0 % [facility] DEPARTMENT OF PATHOLOGY AND GENOMIC MEDICINE Basophils 1.4 (H) 0.0 - 1.0 % [facility] DEPARTMENT OF PATHOLOGY AND GENOMIC MEDICINE Immature granulocytes 0.3Comment: 0.0 - 1.0 % [facility] DEPARTMENT OF "Immature PATHOLOGY AND GENOMIC granulocytes" MEDICINE (promyelocytes, myelocytes, metamyelocytes) Specimen Blood Performing Organization Address City/[facility]/Zipcode Phone Number [facility] DEPARTMENT OF PATHOLOGY AND [address] [place] [address] B natriuretic peptide (01/29/2018 7:35 PM CDT) BNP 7 0 - 100 pg/mL [facility] DEPARTMENT OF PATHOLOGY AND GENOMIC MEDICINE Specimen Blood Performing Organization Address City/[facility]/Zipcode Phone Number [facility] DEPARTMENT OF PATHOLOGY AND [address] [place], [place] [phone] [facility] Comprehensive metabolic panel (01/29/2018 7:35 PM CDT) Sodium 139 135 - 148 mEq/L [facility] DEPARTMENT OF PATHOLOGY AND GENOMIC MEDICINE Potassium 4.6 3.5 - 5.0 mEq/L [facility] DEPARTMENT OF PATHOLOGY AND GENOMIC MEDICINE Chloride 101 98 - 112 mEq/L [facility] DEPARTMENT OF PATHOLOGY AND GENOMIC MEDICINE CO2 29 24 - 31 mEq/L [facility] DEPARTMENT OF PATHOLOGY AND GENOMIC MEDICINE Anion gap 9@ANIO 7 - 15 mEq/L [facility] DEPARTMENT OF PATHOLOGY AND GENOMIC MEDICINE BUN 15 6 - 20 mg/dL [facility] DEPARTMENT OF PATHOLOGY AND GENOMIC MEDICINE Creatinine 0.8 0.5 - 0.9 mg/dL [facility] DEPARTMENT OF PATHOLOGY AND GENOMIC MEDICINE Glucose 83 65 - 99 mg/dL [facility] DEPARTMENT OF PATHOLOGY AND GENOMIC MEDICINE Calcium 9.2 8.3 - 10.2 mg/dL [facility] DEPARTMENT OF PATHOLOGY AND GENOMIC MEDICINE Protein 6.9 6.3 - 8.3 g/dL [facility] DEPARTMENT OF Comment: PATHOLOGY AND GENOMIC 4.6-7.0 g/dL MEDICINE 1 week 4.4-7.6 g/dL 7 months-1year5.1-7.3 g/dL 1-2 years5.6-7.5 g/dL >3 years6.0-8.0 g/dL 18-150 6.3-8.3 g/dL Albumin 3.6 3.5 - 5.0 g/dL [facility] DEPARTMENT OF PATHOLOGY AND GENOMIC MEDICINE A/G ratio 1.1 0.7 - 3.8 [facility] DEPARTMENT OF PATHOLOGY AND GENOMIC MEDICINE Alkaline phosphatase 56 35 - 104 U/L [facility] DEPARTMENT OF PATHOLOGY AND GENOMIC MEDICINE AST 26 10 - 35 U/L [facility] DEPARTMENT OF PATHOLOGY AND GENOMIC MEDICINE ALT 24 5 - 50 U/L [facility] DEPARTMENT OF PATHOLOGY AND GENOMIC MEDICINE Total bilirubin <0.2 0.0 - 1.2 mg/dL [facility] DEPARTMENT OF PATHOLOGY AND GENOMIC MEDICINE Specimen Plasma specimen Performing Organization Address City/State/Zipcode Phone Number [facility] DEPARTMENT OF PATHOLOGY AND [address] [place] [address] [facility] MEDICINE OCT, Optic Nerve - OU (10/16/2017 7:59 AM CDT) Narrative Performed At OD 96 OS 96 Automated Visual Field, Extended - OU (10/16/2017 7:59 AM CDT) Narrative Performed At Right Eye Threshold was 24-2. Strategy was NANCY. -4.80. Findings include normal observations, non-specific defects. Left Eye Threshold was 24-2. Strategy was NANCY. -3.98. Findings include normal observations, non-specific defects. after 10/14/2017 Insurance Payer Benefit Plan / Group Subscriber ID Type Phone Address BCBS BCBS CHOICE PPO/[employer]PL PPO xxxxxxxxxxxx PPO Advance Directives Patient has advance care planning documents on file. For more information, please contact:Everardo Vergara[address] [place] [address]
--- OUTSIDE RECORDS SUMMARY | 2018-10-15 15:41 | XMS REPORT | Continuity of Care Document ---
[...] 1 Ttab po Active 03/28/20 Medical MG [id number] qam 14 Group ABILIFY 5 MG 1 tab po Active 03/28/20 Medical TABS qd 14 Group Allergies, Adverse Reactions, Alerts Substance Category Reaction Severity Reaction Status Date Comments Source type Reported DEMEROL Drug DEMEROL allergy 4 Medical Group Immunizations Immunization Date Given Site Status Last Updated Comments Source Results Order Results Value Reference Date Interpretation Comments Source Name Range Tong [place] PAP SMEAR Normal Medical 014 Group Vital [...] Type Number For Provider Date Date Visit [facility] Lab Report [id number] Cm 03/28 03/28 Jah Douglass, /2013 Medical Medical RN CRITICAL CARE Group Group [facility] [place] Procedures Procedure Code Date Perfomer Comments Source vaginal Pap smear [id number] 01/11/2014 Normal Medical results Group
[2018-10-15] MEDS ORDERED: NA CHLORIDE 0.9% 1,000 ML ONE ×3 (16:16→18:09)
[2018-10-15] MEDS ORDERED: DIPHENHYDRAMINE 50 MG/ML VIAL ONE (16:16)
[2018-10-15 16:47] LABS: Absolute Lymphocytes (CBC) 1.8 K/uL (0.7-4.9); Absolute Monocytes 0.5 K/uL (0.1-1.3); Absolute Neutrophil 3.1 K/uL (1.8-8.0); Basophils % 1.2 % (0-1.3); Eosinophils % 0.4 % (0-4.4); Hematocrit 30.9 % (36.0-45.0); Lymphocytes % 33.2 % (15.3-44.8); MPV 8.4 fL (7.6-11.3); Monocytes % 9.5 % (3.3-12.3); RBC Red Blood Cell Count 3.81 M/uL (3.86-4.86)
[2018-10-15 16:56] LABS: Protime INR 1.26
[2018-10-15 17:01] LABS: Barbiturates NEGATIVE (NEGATIVE); Benzodiazepines NEGATIVE (NEGATIVE); Cocaine NEGATIVE (NEGATIVE); METHAMPHETAM NEGATIVE (NEGATIVE); Methadone NEGATIVE (NEGATIVE); Opiates NEGATIVE (NEGATIVE); Phencyclidine NEGATIVE (NEGATIVE); THC Cannibis NEGATIVE (NEGATIVE)
[2018-10-15 17:07] LABS: ALT/SGPT 24 U/L (12-78); AST/SGOT 23 U/L (15-37); Albumin 4.3 g/dL (3.4-5.0); Alkaline Phosphatase 63 U/L (45-117); BUN Blood Urea Nitrogen 11 mg/dL (7-18); Bicarbonate 23 mmol/L (21-32); Bilirubin Direct 0.1 mg/dL (0-0.2); Bilirubin Total 0.4 mg/dL (0.2-1.0); Glucose Level 95 mg/dL (74-106); Sodium Level 141 mmol/L (136-145); Troponin I < 0.02 ng/mL (0.0-0.045)
[2018-10-15 17:18] LABS: Potassium 2.6 mmol/L (3.5-5.1)
[2018-10-15] MEDS ORDERED: METHYLPREDNISOLONE 125 MG INJ ONE (17:26)
[2018-10-15] MEDS ORDERED: LEVALBUTEROL 1.25 MG/3 ML NEB ONE (17:26)
[2018-10-15] MEDS ORDERED: POTASSIUM 25 MEQ EFFERV TAB ONE ×2 (18:00→18:19)
[2018-10-15] MEDS ORDERED: ASPIRIN 81 MG CHEWABLE TABLET ONE (18:00)
[2018-10-15] MEDS ORDERED: KCL 20 MEQ/100 mL IVPB 20 MEQ/100 ML BAG IV ONE (18:01)
--- NOTE | 2018-10-15 18:43 | RAD REPORT ---
EXAM DESCRIPTION: RAD - Chest Single View - 10/15/2018 6:31 pm CLINICAL HISTORY: SOB;Chest pain Chest pain. COMPARISON: Chest Pa And Lat (2 Views) dated 09/08/2018; Chest Pa And Lat (2 Views) dated 05/02/2018; Chest Pa And Lat (2 Views) dated 05/01/2018; Chest Pa And Lat (2 Views) dated 03/05/2018 FINDINGS: Portable technique limits examination quality. The lungs are grossly clear. The heart is normal in size. No displaced fractures. IMPRESSION: No acute intrathoracic process suspected.
[2018-10-15] MEDS ORDERED: FAMOTIDINE 20 MG/2 ML VIAL IV ONE (18:53)
[2018-10-15] MEDS ORDERED: KETOROLAC 30 MG/ML INJ ONE (18:53)
--- NOTE | 2018-10-15 19:18 | RAD REPORT ---
EXAM DESCRIPTION: CTAbdomen Pelvis W Contrast - 10/15/2018 7:01 pm CLINICAL HISTORY: Abdominal pain. ABD PAIN COMPARISON: Abdomen Pelvis W Contrast dated 03/06/2018 TECHNIQUE: Biphasic CT imaging of the abdomen and pelvis was performed with 100 ml non-ionic IV cont rast. All CT scans are performed using dose optimization technique as appropriate and may include automated exposure control or mA/KV adjustment according to patient size. FINDINGS: The lung bases are clear. The liver, spleen, pancreas, adrenal glands and right kidney are within normal limits. 6 mm stone is present in the left kidney without hydronephrosis. No bowel obstruction, free air, free fluid or abscess. The appendix is normal. No evidence of signi ficant lymphadenopathy. No suspicious bony findings. IMPRESSION: 6 mm left renal calculus without hydronephrosis.
[2018-10-15 19:34] LABS: BUN Blood Urea Nitrogen 8 mg/dL (7-18); Bicarbonate 24 mmol/L (21-32); Glucose Level 122 mg/dL (74-106); Potassium 3.6 mmol/L (3.5-5.1); Sodium Level 140 mmol/L (136-145)
[2018-10-15 19:48] LABS: Urine Blood NEGATIVE (NEG); Urine Glucose NEGATIVE (NEG); Urine Protein NEGATIVE (NEG); Urine Specific Gravity 1.015 (1.005-1.030); Urine pH 8.5 (5.0-7.0)
--- NOTE | 2018-10-15 20:05 | ER ---
Nurse's Notes [facility] Name: Sofía Groves Age: 27 yrs Sex: Female : 1990 Arrival Date: 10/15/2018 Time: 15:52 Bed 19 Private MD: Diagnosis: Paresthesia of skin-generalized;Hypokalemia;Unspecified abdominal pain;Shortness of breath Presentation: 10/15 15:53 Presenting complaint: EMS states: HYPERVENTILATION AND ANXIETY. Transition of care: bp patient was not received from another setting of care. Onset of symptoms is unknown. Risk Assessment: Do you want to hurt yourself or someone else? Patient reports no desire to harm self or others. Initial Sepsis Screen: Does the patient meet any 2 criteria? HR > 90 bpm. No. Patient's initial sepsis screen is negative. Does the patient have a suspected source of infection? No. Patient's initial sepsis screen is negative. Care prior to arrival: IV initiated. 18 GA, in the right antecubital area, Glucose check: 88. 15:53 Method Of Arrival: EMS: [facility] bp 15:53 Acuity: FIORDALIZA 4 bp Triage Assessment: 15:55 General: Appears in no apparent distress. comfortable, Behavior is agitated, anxious. bp Pain: Denies pain. Historical: - Allergies: 15:55 Demerol; bp - Home Meds: 15:55 Adderall XR Oral [Active]; Lexapro Oral [Active]; bp - PMHx: 15:55 ADD/ADHD; bp - Immunization history:: Adult Immunizations up to date. - Social history:: Smoking status: unknown. - Ebola Screening: : Patient negative for fever greater than or equal to 101.5 degrees Fahrenheit, and additional compatible Ebola Virus Disease symptoms Patient denies exposure to infectious person Patient denies travel to an Ebola-affected area in the 21 days before illness onset No symptoms or risks identified at this time. Screenin:57 Abuse screen: Denies threats or abuse. Denies injuries from another. Nutritional bp screening: No deficits noted. Tuberculosis screening: No symptoms or risk factors identified. Fall Risk None identified. Assessment: 15:56 General: SEE TRIAGE NOTE. bp 16:13 Reassessment: PT REFUSING BP CUFF "MY DOCTOR SAYS IT MAKES MY VEINS EXPLODE". bp 18:03 Reassessment: PT REFUSING FURTHER IV FLUIDS, HISTRIONIC AND CLAWING AT PIV. bp 19:24 Reassessment: Patient appears in no apparent distress at this time. Patient and/or ed1 family updated on plan of care and expected duration. Pain level reassessed. Patient is alert, oriented x 3, equal unlabored respirations, skin warm/dry/pink. Patient states symptoms have not improved. Vital Signs: 15:55 BP 153 / 88; Pulse 130; Resp 30; Temp 98; Pulse Ox 100% ; Weight 56.7 kg; bp 16:12 Pulse 114; Resp 20; Pulse Ox 100% ; bp 17:22 Pulse 66; Resp 19; Pulse Ox 100% ; bp 18:00 BP 115 / 100; Pulse 109; Resp 20; Pulse Ox 100% ; bp 18:13 BP 134 / 97; Pulse 85; Resp 16; Pulse Ox 100% ; bp 19:24 BP 132 / 97; Pulse 76; Resp 18; Pulse Ox 100% on R/A; Pain 0/10; ed1 ED Course: 15:52 Patient arrived in ED. bp 15:54 Triage completed. bp 15:56 Arm band placed on. bp 15:56 Maintain EMS IV. Dressing intact. Good blood return noted. Site clean \\T\\ dry. Gauge \\T\\ bp site: 18 R AC. 15:57 Patient has correct armband on for positive identification. Bed in low position. Call bp light in reach. Side rails up X2. Adult w/ patient. 15:58 Mak Watters PA is PHCP. cp 15:58 Jesús Colon MD is Attending Physician. cp 16:01 Nick Andres, KENYATTA is Primary Nurse. bp 16:08 EKG done, by safety technician. reviewed by Mak RIVERA. sm3 16:38 Urine --Ancillary (enter results) Sent. mh5 16:[address] recording monitor on. Pulse ox on. PATIENT REFUSED BLOOD PRESSURE mh5 CUFF . 16:39 Urine Dipstick--Ancillary (enter results) Sent. mh5 16:39 Urine Drug Screen Sent. mh5 16:49 Warm blanket given. jp3 17:18 Notified Nurse Practitioner and/or Physician Flooring Sales Manager of a critical lab result(s), K ss 2.6. 17:23 LAB Add On Sent. bp 18:32 XRAY Chest (1 view) In Process Unspecified. EDMS 18:[address] vm2 19:02 CT Abd/Pelvis - W/Contrast: no oral contrast In Process Unspecified. EDMS 19:24 Repeat lab(s) drawn. by me, sent to lab. EKG done, by ED staff, reviewed by Mak Watters ed1 PA. 19:25 Primary Nurse role handed off by Nick Andres, RN ed1 19:25 Tahmina Rivas, KENYATTA is Primary Nurse. ed1 20:03 Leon Coburn MD is Referral Physician. cp 20:13 No provider procedures requiring assistance completed. IV discontinued, intact, ed1 bleeding controlled, No redness/swelling at site. Pressure dressing applied. Administered Medications: Discontinued: Potassium Chloride 20 mEq IV at calculated rate once; administer over 1-2 hours 16:10 Drug: NS 0.9% 1000 ml Route: IV; Rate: 1 bolus; Site: right antecubital; bp 16:10 Drug: Benadryl 25 mg Route: IVP; Site: right antecubital; bp 17:00 Follow up: Response: Anxiety decreased bp 17:10 Drug: Xopenex (3) 1.25 mg Route: Inhalation; bp 17:10 Drug: NS 0.9% 1000 ml Route: IV; Rate: 1000 ml; Site: right antecubital; bp 17:15 Drug: SOLU-Medrol 60 mg Route: IVP; Site: right antecubital; bp 18:00 Follow up: Response: No adverse reaction bp 17:45 Drug: Potassium Effervescent Tablet 50 mEq Route: PO; bp 18:23 Follow up: Response: No adverse reaction bp 17:45 Drug: Potassium Chloride 20 mEq Route: IV; Rate: calculated rate; Site: right bp antecubital; 17:45 Drug: Aspirin Chewable Tablet 324 mg Route: PO; bp 18:23 Follow up: Response: No adverse reaction bp 18:12 Drug: Potassium Effervescent Tablet 50 mEq Route: PO; bp 18:24 Follow up: Response: No adverse reaction bp 18:44 Drug: Pepcid 20 mg Route: IVP; Site: right antecubital; rv 19:24 Follow up: Response: No adverse reaction ed1 18:44 Drug: TORadol 30 mg Route: IVP; Site: right antecubital; rv 19:24 Follow up: Response: No adverse reaction ed1 Outcome: 20:04 Discharge ordered by . cp 20:13 Discharged to home ambulatory, with significant other. ed1 20:13 Condition: good 20:13 Discharge instructions given to patient, Instructed on discharge instructions, follow up and referral plans. medication usage, Demonstrated understanding of instructions, follow-up care, medications, Prescriptions given X 3. 20:14 Patient left the ED. ed1 Signatures: Dispatcher [employer] EDMS Kristina Alvarez, KENYATTA RN Tahmina Rivas RN RN ed1 Mak Watters, MIGUEL PA Sangeetha Singh 5 Kayla Olivares 2 Nick Andres, RN RN bp Justine Ferreira 3 Yoel Power RN RN rv Wade Quintanilla jp3
--- NOTE | 2018-10-15 20:05 | EDPHYS ---
Physician Documentation [facility] Name: Sofía Groves Age: 27 yrs Sex: Female : 1990 Arrival Date: 10/15/2018 Time: 15:52 Bed 19 Private MD: ED Physician Jesús Colon HPI: 10/15 16:05 This 27 yrs old Female presents to ER via EMS with complaints of shortness of cp breath, abdominal pain. 16:05 The patient has shortness of breath at rest. cp 16:05 Onset: The symptoms/episode began/occurred suddenly, today, 45 minute(s) ago. Duration: cp The symptoms are continuous, and are steadily getting worse. The patient presents with abdominal pain mid abdomen. Onset: The symptoms/episode began/occurred today. The symptoms do not radiate. Associated signs and symptoms: Pertinent positives: numbness in extremities, Pertinent negatives: chest pain, productive cough, fever, visual changes. Severity of symptoms: in the emergency department the symptoms are unchanged despite EMS interventions. Associated signs and symptoms: Pertinent negatives: constipation, diarrhea, dysuria, fever, vomiting. Historical: - Allergies: 15:55 Demerol; bp - Home Meds: 15:55 Adderall XR Oral [Active]; Lexapro Oral [Active]; bp - PMHx: 15:55 ADD/ADHD; bp - Immunization history:: Adult Immunizations up to date. - Social history:: Smoking status: unknown. - Ebola Screening: : Patient negative for fever greater than or equal to 101.5 degrees Fahrenheit, and additional compatible Ebola Virus Disease symptoms Patient denies exposure to infectious person Patient denies travel to an Ebola-affected area in the 21 days before illness onset No symptoms or risks identified at this time. ROS: 16:10 Constitutional: Negative for body aches, chills, fever, poor PO intake. cp 16:10 Eyes: Negative for injury, pain, redness, and discharge. cp 16:10 ENT: Negative for drainage from ear(s), ear pain, sore throat, difficulty swallowing, difficulty handling secretions. 16:10 Cardiovascular: Negative for chest pain, edema, palpitations. 16:10 Respiratory: Positive for shortness of breath, at rest. Negative for cough. 16:10 Abdomen/GI: Positive for abdominal pain, Negative for vomiting, diarrhea, constipation. 16:10 Back: Positive for pain at rest, pain with movement, flank pain. 16:10 : Negative for urinary symptoms, vaginal bleeding. 16:10 Skin: Negative for cellulitis, rash. 16:10 Neuro: Positive for generalized numbness, Negative for altered mental status, headache, syncope. 16:10 All other systems are negative. Exam: 16:00 ECG was reviewed by the Attending Physician. cp 16:15 Constitutional: The patient appears in no acute distress, alert, awake, cp non-diaphoretic, non-toxic, well developed, well nourished, anxious. 16:15 Head/Face: Normocephalic, atraumatic. cp 16:15 Eyes: Periorbital structures: appear normal, Pupils: equal, round, and reactive to light and accomodation, Conjunctiva: normal, no exudate, no injection, Sclera: no appreciated abnormality, Lids and lashes: appear normal, bilaterally. 16:15 ENT: External ear(s): are unremarkable, Ear canal(s): are normal, clear, TM's: bulging, is not appreciated, bilaterally, dullness, bilaterally, erythema, is not appreciated, bilaterally, Nose: is normal, Mouth: Lips: moist, Oral mucosa: pink and intact, moist, Posterior pharynx: is normal, airway is patent, no erythema, no exudate, Voice: is normal. 16:15 Neck: External neck: is normal, ROM/movement: is normal, is supple, without pain, no range of motions limitations, no meningismus, no nuchal rigidity. 16:15 Chest/axilla: Inspection: normal, Palpation: is normal, no crepitus, no tenderness. 16:15 Cardiovascular: Rate: tachycardic, Rhythm: regular, Edema: is not appreciated, JVD: is not appreciated. 16:15 Respiratory: the patient does not display signs of respiratory distress, Respirations: labored breathing, that is mild, shallow respirations, that is mild, Breath sounds: are clear throughout, no decreased breath sounds, no stridor, no wheezing. 16:15 Abdomen/GI: Inspection: abdomen appears normal, Bowel sounds: active, all quadrants, Palpation: soft, in all quadrants, mild abdominal tenderness, in the umbilical area, right upper quadrant and left upper quadrant, rebound tenderness, is not appreciated, involuntary guarding, is not appreciated. 16:15 Back: CVA tenderness, is absent. 16:15 Musculoskeletal/extremity: Exam is negative for calf tenderness, decreased range of motion, deformity, injury. 16:15 Skin: cellulitis, is not appreciated, no rash present. 16:15 Neuro: Orientation: to person, place \T\ time. Mentation: is normal, Cerebellar function: is grossly normal, Motor: moves all fours, strength is normal, Sensation: tingling, that is mild, of the diffusely. 16:15 Psych: Behavior/mood is anxious, Affect is animated, Judgement / Insight is normal. Delusions/hallucinations are not present. 19:25 ECG was reviewed by the Attending Physician. cp Vital Signs: 15:55 BP 153 / 88; Pulse 130; Resp 30; Temp 98; Pulse Ox 100% ; Weight 56.7 kg; bp 16:12 Pulse 114; Resp 20; Pulse Ox 100% ; bp 17:22 Pulse 66; Resp 19; Pulse Ox 100% ; bp 18:00 BP 115 / 100; Pulse 109; Resp 20; Pulse Ox 100% ; bp 18:13 BP 134 / 97; Pulse 85; Resp 16; Pulse Ox 100% ; bp 19:24 BP 132 / 97; Pulse 76; Resp 18; Pulse Ox 100% on R/A; Pain 0/10; ed1 MDM: 16:07 Patient medically screened. cp 17:00 Differential diagnosis: UTI, anxiety reaction, electrolyte abnormality, CVA, TIA, cp cardiac arrythmia, illegal drug use, alcohol intoxication, asthma. 20:02 Data reviewed: vital signs, nurses notes, lab test result(s), EKG, radiologic studies, cp CT scan, plain films. 20:02 Test interpretation: by ED physician or midlevel provider: ECG, plain radiologic cp studies. Counseling: I had a detailed discussion with the patient and/or guardian regarding: the historical points, exam findings, and any diagnostic results supporting the discharge/admit diagnosis, lab results, radiology results, to return to the emergency department if symptoms worsen or persist or if there are any questions or concerns that arise at home. 10/15 16:00 Order name: Acetaminophen cp 10/15 16:00 Order name: Basic Metabolic Panel cp 10/15 16:00 Order name: CBC with Diff; Complete Time: 17:06 cp 04/04 17:06 Interpretation: Normal except: RBC 3.81; HGB 9.9; HCT 30.9; MCV 81.0; MCH 25.9. cp /04 16:00 Order name: ETOH Level; Complete Time: 17:06 cp /04 17:06 Interpretation: Abnormal: ETOH 4. cp /04 16:00 Order name: Hepatic Function; Complete Time: 17:22 cp 10/15 16:00 Order name: PT-INR; Complete Time: 17:06 cp 10/15 16:00 Order name: Ptt, Activated; Complete Time: 17:06 cp / 16:00 Order name: Salicylate; Complete Time: 18:06 cp 10/15 18:06 Interpretation: Reviewed. cp 10/15 16:00 Order name: Urine Drug Screen; Complete Time: 17:06 cp 10/15 16:00 Order name: Troponin I; Complete Time: 17:22 cp 10/15 16:01 Order name: Acetaminophen Level; Complete Time: 17:22 EDMS 10/15 16:01 Order name: Basic Metabolic Panel; Complete Time: 17:22 EDMS 10/15 17:22 Interpretation: Normal except: K 2.6; CL 108; GFR 84. cp 10/15 16:38 Order name: Urine Dipstick--Ancillary (enter results); Complete Time: 19:54 eb 10/15 16:38 Order name: Urine --Ancillary (enter results); Complete Time: 19:54 eb 10/15 17:05 Order name: D-Dimer cp 10/15 17:05 Order name: Lipase; Complete Time: 17:36 cp 10/15 17:06 Order name: D-Dimer; Complete Time: 17:36 EDMS 10/15 17:37 Interpretation: Reviewed. cp /04 17:07 Order name: XRAY Chest (1 view); Complete Time: 18:54 cp 04 17:10 Order name: LAB Add On cp 10/15 18:33 Order name: CT Abd/Pelvis - W/Contrast: no oral contrast; Complete Time: 19:21 cp /04 19:22 Interpretation: Report reviewed. cp / 18:55 Order name: BMP; Complete Time: 19:54 cp 10/15 16:00 Order name: Urine Test (obtain specimen); Complete Time: 16:30 cp 04/04 16:00 Order name: EKG; Complete Time: 16:02 10/15 16:00 Order name: EKG - Nurse/Tech; Complete Time: 16:11 10/15 16:00 Order name: IV Saline Lock; Complete Time: 16:11 10/15 16:00 Order name: Labs collected and sent; Complete Time: 16:30 10/15 16:00 Order name: Urine Dipstick-Ancillary (obtain specimen); Complete Time: 16:30 10/15 16:00 Order name: IV; Complete Time: 16: 10/15 18:55 Order name: EKG - Nurse/Tech: repeat hypokalemia; Complete Time: 19:24 cp EC:00 Rate is 108 beats/min. Rhythm is regular. WV interval is normal. QRS interval is cp normal. QT interval is normal. T waves are Flattened in leads III, aVL. Interpreted by me. Reviewed by me. 19:25 Rate is 78 beats/min. Rhythm is regular. WV interval is normal. QRS interval is normal. cp QT interval is normal. T waves are Flattened in lead aVL. Interpreted by me. Reviewed by me. Administered Medications: Discontinued: Potassium Chloride 20 mEq IV at calculated rate once; administer over 1-2 hours 16:10 Drug: NS 0.9% 1000 ml Route: IV; Rate: 1 bolus; Site: right antecubital; bp 16:10 Drug: Benadryl 25 mg Route: IVP; Site: right antecubital; bp 17:00 Follow up: Response: Anxiety decreased bp 17:10 Drug: Xopenex (3) 1.25 mg Route: Inhalation; bp 17:10 Drug: NS 0.9% 1000 ml Route: IV; Rate: 1000 ml; Site: right antecubital; bp 17:15 Drug: SOLU-Medrol 60 mg Route: IVP; Site: right antecubital; bp 18:00 Follow up: Response: No adverse reaction bp 17:45 Drug: Potassium Effervescent Tablet 50 mEq Route: PO; bp 18:23 Follow up: Response: No adverse reaction bp 17:45 Drug: Potassium Chloride 20 mEq Route: IV; Rate: calculated rate; Site: right bp antecubital; 17:45 Drug: Aspirin Chewable Tablet 324 mg Route: PO; bp 18:23 Follow up: Response: No adverse reaction bp 18:12 Drug: Potassium Effervescent Tablet 50 mEq Route: PO; bp 18:24 Follow up: Response: No adverse reaction bp 18:44 Drug: Pepcid 20 mg Route: IVP; Site: right antecubital; rv 19:24 Follow up: Response: No adverse reaction ed1 18:44 Drug: TORadol 30 mg Route: IVP; Site: right antecubital; rv 19:24 Follow up: Response: No adverse reaction ed1 Disposition: 10/15/18 20:04 Discharged to Home. Impression: Paresthesia of skin - generalized, Hypokalemia, Unspecified abdominal pain, Shortness of breath. - Condition is Stable. - Discharge Instructions: Abdominal Pain, Adult, Potassium Content of Foods, Paresthesia, Shortness of Breath, Aspirin and Your Heart. - Prescriptions for Xopenex HFA 45 mcg/actuation Inhalation HFA aerosol inhaler - inhale 1 puff by INHALATION route every 4 hours As needed; 1 unit. Potassium Chloride 10 mEq Oral Capsule, Sustained Release - take 2 tablet by ORAL route once daily for 5 days; 10 tablet. Prednisone 20 mg Oral Tablet - take 2 tablet by ORAL route once daily for 5 days; 10 tablet. - Medication Reconciliation Form, Thank You Letter, Antibiotic Education, Prescription Opioid Use form. - Follow up: Leon Coburn MD; When: 1 - 2 days; Reason: Recheck today's complaints. - Problem is new. - Symptoms have improved. Addendum: 10/19/2018 07:03 Co-signature as Attending Physician, Jesús Colon MD. r n Signatures: Dispatcher [employer] EDMS Jesús Colon MD MD rn Riggs, Erika RN RN ed1 Mak Watters PA PA cp Nick Andres RN RN bp Yoel Power, RN RN rv Corrections: (The following items were deleted from the chart) 10/15 17:21 16:05 Joseph ordered. cp bp 18:35 10/14 16:35 This 27 yrs old Female presents to ER via EMS with complaints of cp shortness of breath, abdominal pain. cp 10/15 20:07 20:04 10/15/2018 20:04 Discharged to Home. Impression: Paresthesia of skin - cp generalized; Hypokalemia; Unspecified abdominal pain. Condition is Stable. Forms are Medication Reconciliation Form, Thank You Letter, Antibiotic Education, Prescription Opioid Use. Follow up: Leon Coburn; When: 1 - 2 days; Reason: Recheck today's complaints. Problem is new. Symptoms have improved. cp 20:14 20:07 10/15/2018 20:04 Discharged to Home. Impression: Paresthesia of skin - ed1 generalized; Hypokalemia; Unspecified abdominal pain; Shortness of breath. Condition is Stable. Discharge Instructions: Abdominal Pain, Adult, Potassium Content of Foods, Shortness of Breath. Prescriptions for Xopenex HFA 45 mcg/actuation Inhalation HFA aerosol inhaler - inhale 1 puff by INHALATION route every 4 hours As needed; 1 unit, Potassium Chloride 10 mEq Oral Capsule, Sustained Release - take 2 tablet by ORAL route once daily for 5 days; 10 tablet, Prednisone 20 mg Oral Tablet - take 2 tablet by ORAL route once daily for 5 days; 10 tablet. and Forms are Medication Reconciliation Form, Thank You Letter, Antibiotic Education, Prescription Opioid Use. Follow up: Leon Coburn; When: 1 - 2 days; Reason: Recheck today's complaints. Problem is new. Symptoms have improved. cp
== END 2018-10-15 20:14 | disposition home or self-care (01) ==
LOC: ER 15:38
DX: E87.6 Hypokalemia (principal); R10.9 Unspecified abdominal pain; R20.2 Paresthesia of skin; F90.9 Attention-deficit hyperactivity disorder, unspecified type; Z88.5 Allergy status to narcotic agent
CPT/HCPCS: 36415; 71045; 74177; 80048; 80076; 80307; 80320; 80329; 81003; 81025; 83690; 84484; 85025; 85379; 85610; 85730; 93005; 96374; 96375; 99285; J2930; J7030; Q9967